=== PATIENT | female | born 1935 | race Caucasian/White ===

== ENCOUNTER → 2018-01-03 12:16 | Outpatient (CLI) | payer MEDICARE, SELFPAY ==
[2018-01-03 12:57] LABS: Alanine Aminotransferase 20 IU/L (9-52); Albumin 4.6 g/dL (3.5-5.0); Albumin Globulin Ratio 1.5 (1.0-2.8); Alkaline Phosphatase 95 U/L (38-126); Aspartate Aminotransferase 31 IU/L (14-36); BUN Creatinine Ratio 22.5 (6-22); Bilirubin Total 1.4 mg/dL (0.2-1.3); Blood Urea Nitrogen 18 mg/dL (7-17); Carbon Dioxide 31 mmol/L (22-32); Chloride 100 mmol/L (98-107); Estimated Glomerular Filt Rate > 60.0 mL/min (>60); Glucose 102 mg/dL (80-110); HEMOLYSIS 24 (0-50); Potassium 4.3 mmol/L (3.4-5.1); Sodium 140 mmol/L (137-145); Total Protein 7.6 g/dL (6.3-8.2)
[2018-01-03 13:39] LABS: Thyroid Stimulating Hormone 2.54 uIU/mL (0.47-4.68)
[2018-01-03 13:43] LABS: Hemoglobin 16.8 g/dL (12.0-16.0); Red Blood Cell Count 4.89 X10^6/uL (4.0-5.2); White Blood Cell Count 9.5 X10^3/uL (4.5-11.0)
[2018-01-03 13:44] LABS: Hematocrit 49.9 % (36-46); Mean Corpuscular HGB Conc 33.7 % (30-36); Mean Corpuscular Hemoglobin 34.4 PG (26-34); Red Cell Distribution Width 13.6 % (11.6-14.8)
[2018-01-03 13:45] LABS: Add Manual Diff / Slide Review YES
[2018-01-03 13:48] LABS: Anisocytosis 1+; Neutrophils Absolute Manual 5510 /uL (3000-5900); Total Cells Counted 100
== END ==
PROVIDERS: Family Provider Family Medicine; PCP Family Medicine; Visit Provider Family Medicine
DX: I10 Essential (primary) hypertension (principal)
CPT/HCPCS: 36415; 80053; 84443; 85025

== ENCOUNTER 2020-02-13 01:19 | Emergency (ER) | payer SELFPAY | END 2020-02-13 01:53 | disposition home or self-care (01) | LOC: ED 01:52 ==

== ENCOUNTER 2020-02-13 01:19 | Observation (INO) | payer MEDICARE, SELFPAY ==
[2020-02-13] VITALS (29 sets, daily range): BP systolic 137–194; BP diastolic 70–91; PULSE 61–93; RESP 16–38; TEMP 36.1–36.7; O2SAT 94–96; BMI 20.1; BMI 18.5
--- NOTE | 2020-02-13 01:35 | DI.CT.S_ITS ---
PROCEDURE: CT FACIAL BONES WO CON INDICATIONS: Fall/injury TECHNIQUE: Noncontrast 2.5 mm thick axial images acquired from the mandible through the frontal sinuses, with coronal and sagittal reformatting. For radiation dose reduction, the following was used: automated exposure control, adjustment of mA and/or kV according to patient size. COMPARISON: None. FINDINGS: Image quality: Excellent. Bones and teeth: Orbital rock are intact. Sinus rock show no fracture or deformity. Nasal bones and septum are intact. Visualized portions of the mandible demonstrate no fractures or subluxation. Zygomatic arches are intact. Pterygoid plates are intact. Visualized portions of the skull base and auditory canals are intact. Extensive dental periapical lucencies noted. Sinuses: Mucosal thickening noted in the maxillary sinuses bilaterally. Mastoid air cells are aerated. Soft tissues: Left periorbital facial soft tissue swelling. Small air locule noted in the anterior right paramedian floor the mouth. No enlarged lymph nodes. No soft tissue lacerations or debris. Vascular: Visualized vascular structures appear normal in the absence of contrast. Bony vascular foramina and canals are intact. IMPRESSION: 1. No fracture. 2. Extensive periodontal disease. 3. Small air locule in the anterior right paramedian floor of the mouth of uncertain etiology and clinical significance. Recommend correlation with clinical findings. Dictated by: Imelda Hernandez MD, PhD on 02/13/2020 at 7:47 Approved by: Imelda Hernandez MD, PhD on 02/13/2020 at 7:51
--- NOTE | 2020-02-13 01:35 | DI.CT.S_ITS ---
PROCEDURE: CT HEAD/BRAIN WO CON INDICATIONS: Fall/injury TECHNIQUE: Noncontrast 4.5 mm thick angled axial sections acquired from the foramen magnum to the vertex, with coronal and sagittal reformats. For radiation dose reduction, the following was used: automated exposure control, adjustment of mA and/or kV according to patient size. COMPARISON: None. FINDINGS: Image quality: Excellent. CSF spaces: Basal cisterns are patent. No extra-axial fluid collections. Ventricles are normal in size and shape. Brain: No midline shift. No intracranial masses or hemorrhage. Soares-white matter interface is normal. Skull and face: Calvarium and visualized facial bones are intact, without suspicious lesions. Left facial periorbital soft tissue swelling. Sinuses: Mucosal thickening noted in the maxillary sinuses bilaterally. The mastoids are clear. IMPRESSION: No acute intracranial disease process. Dictated by: Imelda Hernandez MD, PhD on 02/13/2020 at 7:31 Approved by: Imelda Hernandez MD, PhD on 02/13/2020 at 7:32
--- NOTE | 2020-02-13 01:35 | DI.CT.S_ITS ---
PROCEDURE: CT CERVICAL SPINE WO CON INDICATIONS: Fall/injury TECHNIQUE: Noncontrast 3 mm thick sections acquired from the skull base to the T4 level. Sagittal and coronal reformats were then constructed. For radiation dose reduction, the following was used: automated exposure control, adjustment of mA and/or kV according to patient size. COMPARISON: None. FINDINGS: Image quality: Excellent. Bones: No fractures or dislocations. Visualized superior ribs are intact. Spine degenerative disc disease and facet arthropathy. Soft tissues: Prevertebral soft tissues are normal in thickness. No paravertebral hematomas. No apical pneumothoraces. Centrilobular emphysematous changes noted in the lungs bilaterally. 4 millimeter calcified granuloma in the posterior left lung apex. IMPRESSION: No fracture. No acute osseous lesion. If symptoms and/or clinical suspicion for pathology persists, evaluation with MRI may be helpful for further assessment. Dictated by: Imelda Hernandez MD, PhD on 02/13/2020 at 7:52 Approved by: Imelda Hernandez MD, PhD on 02/13/2020 at 7:58
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
[2020-02-13] MEDS: TET,DIPH,PERTUSS(ACELL),VAC/PF 0.5 ML SYRINGE IM (01:43)
[2020-02-13 02:04] LABS: Ethanol (ETOH) 162 mg/dL
[2020-02-13 02:31] LABS: Alanine Aminotransferase 15 IU/L (<35); Albumin 3.9 g/dL (3.5-5.0); Albumin Globulin Ratio 1.3 (1.0-2.8); Alkaline Phosphatase 96 U/L (38-126); Aspartate Aminotransferase 30 IU/L (14-36); BUN Creatinine Ratio 27.3 (6-22); Bilirubin Total 0.6 mg/dL (0.2-1.3); Blood Urea Nitrogen 24 mg/dL (7-17); Calcium 8.9 mg/dL (8.4-10.2); Carbon Dioxide 28 mmol/L (22-32); Chloride 101 mmol/L (98-107); Creatine Kinase 90 U/L (30-135); Estimated Glomerular Filt Rate > 60.0 mL/min (>60); Globulin 2.9 g/dL (1.7-4.1); Glucose 91 mg/dL (80-110); HEMOLYSIS 22 (0-50); Potassium 4.2 mmol/L (3.4-5.1); Sodium 137 mmol/L (137-145); Total Protein 6.8 g/dL (6.3-8.2)
[2020-02-13 02:42] LABS: Add Manual Diff / Slide Review NO; Basophils Absolute Auto 100 /uL (0-100); Basophils Percent Auto 0.8 % (0-2); Eosinophils Absolute Auto 400 /uL (0-450); Eosinophils Percent Auto 4.6 % (2-4); Hematocrit 47.1 % (36-46); Hemoglobin 15.8 g/dL (12.0-16.0); Lymphocytes Absolute Auto 2600 /uL (1100-4500); Lymphocytes Percent Auto 30.5 % (25-40); Mean Corpuscular HGB Conc 33.5 % (30-36); Mean Corpuscular Volume 104.7 fL (80-100); Monocytes Absolute Auto 800 /uL (0-900); Neutrophils Absolute Auto 4700 /uL (1500-7000); Neutrophils Percent Auto 55.1 % (50-75); Red Cell Distribution Width 13.6 % (11.6-14.8)
[2020-02-13 02:43] LABS: Troponin I < 0.012 ng/mL (0.01-0.034)
--- NOTE | 2020-02-13 03:00 | DI.CT.S_ITS ---
PROCEDURE: CT ANGIO HEAD AND NECK INDICATIONS: ataxia TECHNIQUE: Pre-contrast 4.5 mm thick sections acquired from the foramen magnum to the vertex. After the administration of intravenous contrast, 1 mm thick sections acquired from the aortic arch through the Taylor of Campbell. Post-contrast 4.5 mm thick sections then re-acquired from the foramen magnum to the vertex. 3-dimensional mhypzib-tzxycvumr-glamgebpjc (MIP) and/or volume rendering reformats were acquired of the central intracranial vasculature and neck separately. COMPARISON: None. FINDINGS: Image quality: Excellent. BRAIN: CSF spaces: Ventricles are normal in size and shape. Basal cisterns are patent. No extra-axial fluid collections. Brain: No midline shift. No intracranial bleeds or masses. Soares-white matter interface appears intact. Skull and face: Calvarium and facial bones appear intact, without suspicious lesions. Orbits appear normal. Left periorbital facial soft tissue swelling. Sinuses: Mucosal thickening noted in the maxillary sinuses. Small mucous retention cyst versus polyp noted in the left sphenoid sinus. mastoids are clear. HEAD CT ANGIOGRAPHY: Anterior circulation: Intracranial internal carotid arteries are normal in flow. Atherosclerotic calcifications noted in the cavernous and clinoid segments of the internal carotid arteries bilaterally which causes mild narrowing of the vessels. The flow within the paired anterior cerebral arteries is normal and symmetric. The flow within the middle cerebral arteries is normal and symmetric. The anterior communicating artery is seen. No aneurysms are seen. Posterior circulation: Visualized portions of the vertebral arteries demonstrate normal caliber, and join to form a normal appearing basilar artery. Flow within the posterior cerebral arteries is normal and symmetric. The left posterior cerebral artery has a origin. No aneurysms are seen. Dural sinuses demonstrate normal postcontrast enhancement. NECK CT ANGIOGRAPHY: Carotid system: The great vessels demonstrate a conventional anatomy as they arise from the aortic arch. The origins of the common carotid arteries appear patent. The common carotid arteries demonstrate normal caliber and courses. Minimal atherosclerotic plaque noted in the origins of the internal carotid arteries bilaterally which causes less than 50% stenosis. Posterior circulation: The origins of the vertebral arteries both appear widely patent. Patient is right vertebral artery dominant. The more superior extracranial portions of both vertebral arteries also demonstrate normal courses and calibers. They join to form a normal appearing basilar artery. Soft tissues: Visualized neck soft tissues demonstrate no suspicious abnormalities. 3 millimeter nodule noted in the posterior lateral right upper lobe (series 4, image 162). Bilateral lung apices images disease. Small subcentimeter nodules noted in the thyroid gland. Bones: No suspicious bony lesions. Spine degenerative disc disease and facet arthropathy. Visualized cervical spine appears normally aligned. IMPRESSION: 1. No acute intracranial disease process. 2. No large vessel occlusion, hemodynamically significant vascular stenosis, vascular dissection or aneurysm. 3. 3 millimeter right upper lobe nodule. 4. Small subcentimeter thyroid nodules. Any quantitative measurements of stenosis were performed using NASCET criteria. Dictated by: Imelda Hernandez MD, PhD on 02/13/2020 at 8:01 Approved by: Imelda Hernandez MD, PhD on 02/13/2020 at 8:09
[2020-02-13] MEDS: SODIUM CHLORIDE 0.9% 500 ML 1000 ML IV (03:10)
--- NOTE | 2020-02-13 03:14 | PC.NURSE ---
Orthostatics done at bedside with Dr. Felton present. BP and HR unchanged during orthostatics. Pt mobilizing wobbly; she felt a little dizzy upon sitting up. After a bit, she still feels unsteady walking and is swaying around requiring an assist. Assisted back to bed. Will obtain CT scan with contrast. Still AxOx3, clear speech
[2020-02-13 03:22] LABS: Platelet Count 166 X10^3/uL (150-400); White Blood Cell Count 6.3 X10^3/uL (4.5-11.0)
[2020-02-13] MEDS: ASPIRIN 81 MG CHEW TAB 324 MG PO (04:55)
[2020-02-13 05:19] LABS: COVID19 -Nasal RAPID Negative (Negative)
--- NOTE | 2020-02-13 06:48 | PC.ADMIT ---
[id number] [facility] Admission Note: The patient,Himanshu Herr,84 y/o, was given written information regarding hospital policies, unit procedures and contact persons. Patient's smoking status: Current every day smoker. Vital Signs - 8 hr 02/13/20 01:30 02/13/20 05:19 02/13/20 06:02 Temperature 97.9 F 97.4 F L Pulse Rate 75 74 77 Respiratory Rate 17 18 Blood Pressure 166/87 H 172/82 H 181/80 H Pulse Oximetry 96 94 96 02/13/20 06:03 02/13/20 06:08 Temperature Pulse Rate 92 H Respiratory Rate 16 Blood Pressure 144/73 H 144/70 H Pulse Oximetry 95 Patient arrived to room 227 via stretcher in NAD. VSS, afebrile. Able to transfer from stretcher with assist to bed. C/O dizziness upon ambulation intermittently. Reports she does not take any medication. Oriented to room, plan of care and call light. Bed alarm verified active.
--- NOTE | 2020-02-13 07:34 | DI.MRI.S_ITS ---
PROCEDURE: MR STROKE Pre- and post-contrast brain MRI, non-contrast brain MR angiogram, pre- and postcontrast neck MR angiogram INDICATIONS: fall ataxia r/o possible cva TECHNIQUE: Brain: Noncontrast axial T1 spin echo, axial T2 fast spin echo, sagittal and axial FLAIR, coronal T2 fast spin echo, axial gradient echo, axial diffusion and ADC through the brain. After the administration of contrast, axial 3D VIBE of the cranial vasculature and brain. Brain MRA: Non-contrast 3-D time of flight MR angiogram, with multiple vjtwxkk-uvfosisid-bqgoxachpb (MIP) reformats performed. Neck MRA: Axial and sagittal TruFISP through the neck. Coronal dynamic MR angiogram during administration of contrast in the arterial and venous phases, with 3-dimenstional vejxazo-dyliwoggx-xfnlnrigxs (MIP) reformats constructed from subtraction images. COMPARISON: [facility], CT, CT ANGIO HEAD AND NECK, 02/13/2020, 3:12. [facility], CT, CT HEAD/BRAIN WO CON, 02/13/2020, 1:40. FINDINGS: Image quality: Excellent. BRAIN: CSF spaces: Ventricles are normal in size and shape. Basal cisterns are patent. No extra-axial fluid collections. Brain: No intracranial bleeds or mass effects. There is mild, diffuse cerebral volume loss. There are mild periventricular and subcortical white matter chronic microvascular ischemic changes. Soares-white matter interface is normal. Diffusion weighted images show no acute ischemic insults. Brainstem appears normal. Normal intravascular flow voids are present. There is normal postcontrast enhancement of the dural sinuses. No abnormal intracranial enhancement. Skull and face: Calvarial marrow signal is normal. Orbits appear normal. Sinuses: Mild mucosal thickening noted in the maxillary sinuses bilaterally. The mastoids are clear. BRAIN MR ANGIOGRAM: Anterior circulation: Intracranial internal carotid arteries are normal in enhancement. Mild atherosclerotic irregularity noted in the cavernous and clinoid segments of the internal carotid arteries bilaterally which causes mild narrowing of the vessels. The flow within the paired anterior cerebral arteries is normal and symmetric. The flow within the middle cerebral arteries is normal and symmetric. The anterior communicating artery is seen. No stenoses, occlusions, or aneurysms. Posterior circulation: The visualized portions of the vertebral arteries demonstrate normal caliber, and join to form a normal appearing basilar artery. The flow within the posterior cerebral arteries is normal and symmetric. Left posterior cerebral artery has a origin. No stenoses, occlusions, or aneurysms. NECK MR ANGIOGRAM: Carotids: Great vessels demonstrate a conventional anatomy as they arise from the aortic arch. The origins of the common carotid arteries appear patent. The calibers and courses of both common carotid arteries are normal. The bifurcation regions appear normal bilaterally. The internal carotid arteries demonstrate normal course and caliber. Posterior circulation: The origins of the vertebral arteries appear patent. More superior portions of both vertebral arteries demonstrate normal course and caliber, and join to form a normal appearing basilar artery. Miscellaneous: Subclavian arteries appear patent. Pre-contrast images through the neck show no soft tissue abnormalities. IMPRESSION: BRAIN MRI: 1. No acute intracranial disease process. 2. No areas of acute or chronic infarction. 3. Mild, diffuse cerebral volume loss. 4. Mild periventricular and subcortical white matter chronic microvascular ischemic change. BRAIN MR ANGIOGRAM: Negative MR angiogram of the head. NECK MR ANGIOGRAM: Negative MR angiogram of the neck. Dictated by: Imelda Hernandez MD, PhD on 02/13/2020 at 11:15 Approved by: Imelda Hernandez MD, PhD on 02/13/2020 at 11:22
--- NOTE | 2020-02-13 07:42 | P.HP_ITS ---
History of Present Illness History of Present Illness Date Patient Seen: 02/13/20 Time Patient Seen: 07:01 Chief complaint: glf Narrative: 84-year-old female patient of Dr. Campbell was in her usual state of health last night. She when out to go walk her dog. She got home to the diarrhea she fell. She says she does not really remember falling but she kind does. She does not remember hitting her head either. This was in her driveway. She says she could not get up is quite frustrating for her she is very spry she enjoys walking. She says she has never had this problem before. Apparently she was in the driveway for about 20 minutes or so until her came out and found her. She was having hard time getting up and he was concerned and he called 911. Patient states she had her normal evening when out for her normal walk. She drink or 2 glasses of scotch which she always does. She says that is never really been a problem for her. She says during the day she did not have any headaches or dizziness chest pain palpitations or shortness of breath. She has not had problems with fall and does not appear to feel like she has an alcohol problem. Up after the EMS was called. Patient was having a difficult time getting up. They did not see any lateralization symptoms of difficulty with hand finger leg weakness difficulty with speech. She was then sent to the emergency room for evaluation where she had a CT CT angiogram lab work. CT scan was unrevealing of head and neck. CTA was normal an AH stroke scale was 1. Had consultation with neurology who recommended further evaluation and observation to rule out underlying potential cardiac or cerebral cause of her inability to ambulate fall so she was admitted to the hospital. She was tried ambulated number times in the emergency room. She is weeks she had an ataxic gait. She was off balance and could not ambulate on her own without significant assistance. On review of her laboratory tests are fairly unremarkable although she does have a blood alcohol level 162. This morning. She is a good historian clear. She says that does she is feeling okay she just does not remember how she fell and she is frustrated on the reason why she could not get up and walk on her own which is unusual for her. Patient History Medical History Deep vein thrombosis (Chronic) Osteopenia (Chronic) Thrombocytopenia (Chronic) Surgical History History of hip replacement (11/24/02) S/P total abdominal hysterectomy and bilateral salpingo-oophorectomy (~1976) Status post breast biopsy Family & Social History Social History: household members spouse Prior Living Arrangements House Safety & Behavioral: Feels Safe in Current Yes Environment Been Physically Hurt or No Threatened By a Person Suicidal Ideation Description None Tobacco & Substance use: Smoking Status Current every day smoker alcohol intake current alcohol intake frequency 0-2 drinks per day Substance Use Type does not use Meds Home Medications and Allergies Home Medications Medication Instructions Recorded Confirmed Type No Known Home Medications 02/13/20 02/13/20 History Allergies Allergy/AdvReac Type Severity Reaction Status Date / Time erythromycin base Allergy Verified 01/18/18 11:12 Exam Vital Signs (past 8 hours): - 02/13/20 01:30 02/13/20 05:19 02/13/20 06:02 Temperature 97.9 F 97.4 F L Pulse Rate 75 74 77 Respiratory Rate 17 18 Blood Pressure 166/87 H 172/82 H 181/80 H Pulse Oximetry 96 94 96 02/13/20 06:03 02/13/20 06:08 Temperature Pulse Rate 92 H Respiratory Rate 16 Blood Pressure 144/73 H 144/70 H Pulse Oximetry 95 Oxygen Delivery Method Room Air Narrative Exam Narrative: Gen.: She is alert good historian. HEENT: Patient has a left-sided facial bruising underneath her eye. With a small abrasion on her nose left temporal area on her forehead. Her pupils equal round and reactive her oral mucosa is moist in her neck is supple Cardio: S1-S2 regular rate and rhythm no murmurs appreciated. Respiratory: Lungs are clear to auscultation no wheezes or crackles normal respiratory effort. Abdomen: Soft nontender no rebound or guarding no liver spleen enlargement no appreciable hernias Extremities: Full range of motion no weakness good strength Neurologic: Cranial nerves appear to be intact. Reflexes are normal Objective Labs Result Diagrams: 02/13/20 01:45 02/13/20 01:45 Labs: Laboratory Results - last 24 hr 02/13/20 02/13/20 02/13/20 01:45 01:45 01:45 WBC 6.3 RBC 4.50 Hgb 15.8 Hct 47.1 H MCV 104.7 H MCH 35.0 H MCHC 33.5 RDW 13.6 Plt Count 166 Neut % (Auto) 55.1 Lymph % (Auto) 30.5 Buchanan % (Auto) 9.0 Eos % (Auto) 4.6 H Baso % (Auto) 0.8 Neut # (Auto) 4700 Lymph # (Auto) 2600 Buchanan # (Auto) 800 Eos # (Auto) 400 Baso # (Auto) 100 Sodium 137 Potassium 4.2 Chloride 101 Carbon Dioxide 28 BUN 24 H Creatinine 0.88 Estimated GFR > 60.0 BUN/Creatinine Ratio 27.3 H Glucose 91 Calcium 8.9 Total Bilirubin 0.6 AST 30 ALT 15 Alkaline Phosphatase 96 Total Creatine Kinase 90 CK-MB (CK-2) TNP CK-MB (CK-2) Rel Index TNP Troponin I < 0.012 Total Protein 6.8 Albumin 3.9 Globulin 2.9 Albumin/Globulin Ratio 1.3 Ethyl Alcohol 162 H COVID-19 PCR 02/13/20 05:00 WBC RBC Hgb Hct MCV MCH MCHC RDW Plt Count Neut % (Auto) Lymph % (Auto) Buchanan % (Auto) Eos % (Auto) Baso % (Auto) Neut # (Auto) Lymph # (Auto) Buchanan # (Auto) Eos # (Auto) Baso # (Auto) Sodium Potassium Chloride Carbon Dioxide BUN Creatinine Estimated GFR BUN/Creatinine Ratio Glucose Calcium Total Bilirubin AST ALT Alkaline Phosphatase Total Creatine Kinase CK-MB (CK-2) CK-MB (CK-2) Rel Index Troponin I Total Protein Albumin Globulin Albumin/Globulin Ratio Ethyl Alcohol COVID-19 PCR Negative Assessment & Plan Assessment & Plan narrative: Fall with inability to ambulate. Patient was tried ambulated number times in the ER with inability to ambulate. Neurology was consulted. Recommended further evaluation and workup to rule out underlying cerebrovascular accident versus TIA. Patient will have an MR stroke protocol this morning with an echocardiogram she will be placed on telemetry monitoring. She will have physical therapy. Her blood pressure is a little bit high she will be continued on aspirin and DVT prophylaxis. Will proceed with echocardiogram physical therapy. Differential possibilities include TIA verses acute labyrinthitis versus alcohol intoxication. Will monitor here in the hospital for other signs and symptoms and see if we can not get her up and allow her to walk and ambulate with assistance. Alcohol intoxication. With chronic alcohol use. She says she drinks every night. And appears her alcohol level would be normal baseline for her in the evening. Although this could be contributing to her inability to ambulate and her fall. Essential hypertension blood pressures initially quite high. Has not come down nicely. Will continue to monitor and start antihypertensive medication if needed. Prophylaxis she will be placed on DVT prophylaxis. Disposition plan she will be admitted for observation for further evaluation she will work with physical therapy have an MRI and echocardiogram. Anticipate patient to be discharged tomorrow if no significant findings. Quality VTE Deep Vein Thrombosis/Pulmonary Embolism Present on Admission: No
--- NOTE | 2020-02-13 08:56 | PC.NURSE ---
Addendum entered by Melva Han R.N. 02/13/20 12:44: Up with PT, ambulating in [place], Per Scott, 1PA FWW. Gait steady. Denies pain. Addendum entered by Melva Han R.N. 02/13/20 11:32: 1115-Returned from MRI. Pt assisted to BR. HTN noted, will recheck. Pt does not take any meds at home. Addendum entered by Melva Han R.N. 02/13/20 10:20: 1020- Pt off unit for MRI, jewelry removed and placed in cup at bedside. Original Note: Am shift Pt is ALGAACIQ, denies pain, except 1/10 to L periorbital bruising. States she has been weak to BLE since fall, but was able to get to BSC with assist of 1 and FWW. RA Spo2 97% Updated on POC to include MRI today @ 1030. MRI questions completed with Buck zamora . Update to Daughter.
[2020-02-13] MEDS: ENOXAPARIN 30 MG/0.3 ML SYRINGE SUBCUT (11:41)
--- NOTE | 2020-02-13 13:53 | PC.NURSE ---
Spoke with Dr. San who is assembler convertible top for Dr. Almonte. Reported VS and MRI results. Reviewed case. Orders received to monitor routine VS and notify assembler convertible top provider for SBP greater than 180. Reported to primary RN.
--- NOTE | 2020-02-13 14:48 | PT.IIE ---
Surgical History (Last Reviewed 02/13/20 @ 01:38 by Harry Felton MD) History of hip replacement (11/24/02) S/P total abdominal hysterectomy and bilateral salpingo-oophorectomy (~1976) Status post breast biopsy Medical History (Last Reviewed 02/13/20 @ 01:38 by Harry Felton MD) Deep vein thrombosis (Chronic) Osteopenia (Chronic) Thrombocytopenia (Chronic) Physical Therapy Inpatient Evaluation/Re-Eval M1 PT/OT-IP Prior Functional Status Start: 02/13/20 08:56 Freq: NEEDED Status: Active Protocol: Document 02/13/20 13:51 HH (Rec: 02/13/20 14:00 [id number]) Medical Review Prior Functional Status Medical History Reviewed Yes Diet/Fluid Consistency Regular Communication able to make needs known. KALSKAG Mobility and Gait Pt does not need AD for home mobility but SPC for community mobility. She stated she has balance issue. She likes to walk up to 1/2 mile a day and enjoy walking her dog daily. She has been progressively getting weak recently from a week ago who fell twice. Activities of Daily Living and IADL's independent for ADLs and IADLs with/without SPC. Social History Household Members spouse Living Arrangements House Number of Floors (Floors) One Floor Number of Stairs To Enter/Railing? 3 short RAFFY without railings has a ramp from the sideway to enter the house as well Home Environment Standard Height Toilet,Walk in Shower,Ramp Home Equipment Straight Cane,Hand Held Shower ,Grab Bars In Shower Employment Status Retired Additional Social History Comment Pt lives with her disabled Don in [place]. She stated has 24/7 assistance from multiple CGs. Has 2 children who are 50s but live in [place]. They have not been seeing each other d/t border restriction for COVID. M2 PT-IP Current Condition Start: 02/13/20 08:56 Freq: NEEDED Status: Active Protocol: Document 02/13/20 13:51 HH (Rec: 02/13/20 14:00 [id number]) Physical Therapy Current Condition Current Condition Evaluation Date 02/13/20 Treatment Diagnosis GLF, possible TIA, alcohol intoxication, labyrinthitis, difficulty in wking Onset Date 02/12/20 Weight Bearing Status Weight Bearing Status Full Weight Bearing M3 PT-IP Subjective Start: 02/13/20 08:56 Freq: NEEDED Status: Active Protocol: Document 02/13/20 13:51 (Rec: 02/13/20 14:00 [id number]) Subjective Physical Therapy Visit Type Type Initial Evaluation Visit Start Time 12:10 Visit Stop Time 12:43 Total Visit Minutes 33 Notes BP has been staying at 190s/ 90s per nursing staff stated. Number of SCARFER OPERATOR Visits 0 Physical Therapy Visit Comments Patient Comments Im feeling okay. Patient Goals To regain her strength and mobility so she can return home. Therapy Pain Assessment Pain Present Pain Present Denied Pain M4 PT-IP Mobility and Gait Start: 02/13/20 08:56 Freq: NEEDED Status: Active Protocol: Document 02/13/20 13:51 (Rec: 02/13/20 14:00 [id number]) PT-Bed Mobility Assessment Supine to Sit Supine to Sit Standby Assistance Scooting Scooting to Edge of Bed Standby Assistance PT-Transfer Assessment Sit to and From Stand Sit to and from Stand Contact Guard Assistance Equipment Transfer Assistive Device Bed Rail,Front Wheeled Walker Orthotic/Prosthetic Devices or Brace: No Transfers Transfer Destination Bed,Chair Transfer Technique Stand Step Pivot Transfer Ability Level of Assist Contact Guard Assistance,Use of Upper Extremities Comments Mobility Comments Pt was sleeping in bed upon PT arrival. She was able to answer appropriately but very KALSKAG. She woke up and agreed to mobilize with PT .BP at 168/ 90 in supine and denies any discomfort. She then got up from supine to long sit position and pivot herself to R EOB safely. She stood up after without UE push off from bed. FWW provided for her and she could greige goods examiner place independently. Pt did c/o slight lightheadiness but resolved shortly. Pt was able to proceed to amb with PT. She completed amb for 1 lap of [place]. She amb with minimally use of FWW and appeared to be quite steady with CGA/ SBA. Denies any discomfort or SOB. She then went back to her room and stand step pivot transferred herself to bedside chair without cues. She sat in chair comfortably and no symptoms of dizziness/ lightheadiness. BP at 170/90. Gait Assessment Gait Gait Assistance Required: Standby Assistance,Contact Guard Assist Distance (Feet) 180 Able to Maintain Weight Bearing Status Yes During Gait Assistive Devices Assistive Device Gait Belt,Front Wheeled Walker Orthotic/Prosthetic Devices or Brace: No Gait Deviations General Gait Pattern Decreased Stride Length, Decreased Feet Clearance Factors Limiting Gait Function Factors Limiting Gait Function Decreased Activity Tolerance, Decreased Strength,Poor Balance Comments Gait Comments see mobility comments Stair Climbing Assessment Comments Stair Climbing Comments did not assess d/t tolerance. PT-Balance Assessment Sitting Balance and Reactions Static Sitting Balance Ability Normal Dynamic Sitting Balance Ability Normal Standing Balance and Reactions Static Standing Balance Ability Good Dynamic Standing Balance Ability Good Device Used FWW M5 PT-IP Objective Assessments Start: 02/13/20 08:56 Freq: NEEDED Status: Active Protocol: Document 02/13/20 14:38 (Rec: 02/13/20 14:48 [id number] Orientation Orientation/Cognition Level of Alertness Alert Orientation Name,Age,Birthday,Month,Date, Year,Day of Week,Place, Situation Language Function Ability No Deficits Noted,Hard of Hearing Safety Awareness Understands Safety Issues Memory Description Short Term Impaired Comments Pt reports her short term memory has not been too good since she started getting weaker. Gross Range of Motion Upper Extremity ROM Assessment Within Functional Limits Lower Extremity ROM Assessment Within Functional Limits Strength Upper Extremity Strength Assessment Bilaterally Impaired Shoulder 4-/5 Elbow 4-/5 Lower Extremity Strength Assessment Bilaterally Impaired Hip 4-/5 Knee 4-/5 Coordination Assessment Gross Coordination Gross Coordination WNL Sensation Assessment Sensation Gross Sensation WNL Muscle Tone Muscle Tone WNL Yes M6 PT-IP Treatment Start: 02/13/20 08:56 Freq: NEEDED Status: Active Protocol: Document 02/13/20 14:38 (Rec: 02/13/20 14:48 [id number]) Physical Therapy Treatment Education Education Provided Safety M7 PT-IP Assessment and Plan Start: 02/13/20 08:56 Freq: NEEDED Status: Active Protocol: Document 02/13/20 14:38 (Rec: 02/13/20 14:48 [id number]) PT Summary Assessment and Plan Potential Rehabilitation Potential Good Status of Condition at Evaluation Evolving Summary Impairments ROM,Strength,Balance,Bed Mobility,Transfers,Gait, Activity Tolerance Assessment Summary This is a low complexity evaluation for this 64yo female admitted to for possible TIA, alcohol intoxication and acute labyrinthitis. Pt stated she was independent with/ without SPC for mobility and walked upto 0.5 mile everyday. Upon assessment, pt appeared to be a good historian and able to amb steadily with FWW for up to 200 ft safely. She was SBA/ CGA in general but her BP cont to be high around 160s/90s pre and post mobility but I believe that she will cont to progress during hospitalization. Expect pt to d/c home if she is medically stable. If not, home health might be beneficial to her to improve her mobility and strength since pt has a disabled that needs 24 /7 care from CGs. Goals Bed Mobility Goal Standby Assistance Transfer Goal Standby Assistance,Cane,Front Wheeled Walker Gait Goal Standby Assistance,Cane,Front Wheel Walker Gait Distance 400 Days to Meet Goals 3 Frequency of Treatment Frequency Of Treatment Once a Day Treatment Plan Physical Therapy Treatment Plan Bed Mobility Training,Transfer Training,Gait Training, Therapeutic Exercise,Balance Retraining,Discharge Planning, Neuromuscular Re-ed Other Recommendations and Next Treatment mobility as ismael Focus check vitals trial for SPC if possible Recommendations To Nursing Amount of Assist Needed 1 Person Assist Discharge Recommendations PT Discharge Recommendations Home with Assistance,Home Health Other Discharge Recommendations Expect pt to d/c home if she is medically stable. If not, home health might be beneficial to her to improve her mobility and strength since pt has a disabled that needs 24/7 care from CGs. Transportation Needs at Discharge Private Vehicle
--- NOTE | 2020-02-13 22:05 | PC.NURSE ---
Shift note: Pt Alert and oriented to self and surroundings. Denies pain or discomfort. VSS, NSVS stable. Asked frequently about test results, reassured that MD would go over all her results in the AM.
--- NOTE | 2020-02-14 06:05 | PC.NURSE ---
director of business continuity note: Patient with marked forgetfulness throughout the night. Multiple times patient has gotten up out of bed, without calling for assistance. Both RN and ACCOUNT SERVICES SPECIALIST educated patient on importance of calling for assistance prior to getting up. Upon initial assessment, patient also disoriented to year and situation. Patient with restful night sleep, otherwise. VSS, patient ambulated to restroom with SBA only. Patient eating/drinking well. Patient repositioning in bed independently throughout the shift. Currently patient is sleeping, no distress noted.
[2020-02-14 08:00] VITALS: BP 164/77; PULSE 65; RESP 20; TEMP 36.6; O2SAT 94
--- NOTE | 2020-02-14 10:10 | P.DS_ITS ---
History of Present Illness History of Present Illness Date Patient Seen: 02/14/20 Time Patient Seen: 10:10 Date of Onset of Symptoms: 02/14/20 Chief complaint: glf Narrative: See history and physical dictated by Dr. Almonte 02/13/2020 Discharge Providers Provider Date of admission: 02/13/20 05:20 Discharge Date: 02/14/20 Primary care physician: Sukhjinder Campbell MD Consults: 02/13/20 07:33 Consult to Physical Therapy Evaluate & Treat Comment: Physician Instructions: Evaluate and Treat Discharge provider: Patricio Flores MD Summary Hospital Course Discharge Diagnosis: Fall Inability to ambulate Contusion left face Alcohol intoxication Essential hypertension Hospital Course: Fall. Patient was admitted. CT scan of neck and head showed no abnormality. Patient was somewhat unclear of what happened. Could remember actually following period remembered waking up on the ground. MRI was negative showed no evidence of stroke. Crowley to be combination of alcohol and possible concussion. Patient neurologically stable throughout the course of her admission. Tele showed no evidence of arrhythmia. Physical therapy showed normal ability to ambulate period was slightly weak but home health was discus sed with patient and she has 24 hour caregiver in the house and does not want any further help. Patient requesting go home showed no other evidence of abnormality on will be discharged to home. Inability to ambulate. Crowley to be secondary to above. Probably contusion and concussion. Seems to be much better today. Still feels slightly was a but totally normal exam neurologic normal MRI. Probably was combination of alcohol intoxication and concussion. Seems to pretty much have resolved. Patient will follow-up with her usual provider. Contusion left face. No evidence of orbital or facial fractures. Small abrasion. Can use Neosporin or bacitracin or do nothing. No other changes. Fo llow-up with Dr. Campbell as scheduled. Alcohol intoxication. Patient had a blood alcohol level 162. She admits to drinking 2 scotches a day which she has done for ever. She does not feel it has ever been a problem we discussed that it might have been part of the issue for her fall. She probably will make any changes. We discussed reasoning she understands. Essential hypertension. Not on medications. Borderline elevated consistently throughout admission. Probably will need treatment but not probable cause of fall and can wait until primary care doctor sees her and treats. Or at least h ad that discussion. Status at Discharge Cognitive/behavioral status at discharge: oriented Functional status at discharge: independent ambulation Overall status at discharge: patient is progressing back to baseline Exam Vital Signs (past 8 hours): - 02/14/20 08:00 Temperature 97.8 F Pulse Rate 65 Respiratory Rate 20 Blood Pressure 164/77 H Pulse Oximetry 94 Oxygen Delivery Method Room Air Oxygen Flow Rate 0 Narrative Exam Narrative: Alert elderly female lying in bed no acute distress. HEENT exam shows slight ecchymoses and small abrasion over the left eyebrow. She has some ecchymosis down around the lower orbit. No real swelling. Very slight tenderness to palpation. Eye itself appears normal. Normal movement. Neck supple without adenopathy nontender. Lungs are clear. Heart regular rate and rhythm. Abdomen is soft positive bowel sounds nontender. Extremities normal movement nontender. Neurologic exam shows cranial nerves 2-12 intact. Motor is 5/5. Reflexes 2+ and symmetric. Gait appears normal if she walks around with assistance. Psychologically interactive and appropriate Objective Labs Result Diagrams: 02/13/20 01:45 02/13/20 01:45 Labs: Laboratory Results - last 24 hr 02/13/20 05:50 Nasal Screen MRSA (PCR) Negative for mrsa Discharge Assessment & Plan Assessment and Plan Assessment: Discharge to home. Follow-up with Dr. Campbell 1 week Discharge Plan Discharge Plan Patient Disposition: Home Discharge orders & Medications Prescriptions: No Action No Known Home Medications RF: 0 Follow up/Referrals: Sukhjinder Campbell MD [Primary Care Provider] - 1 Week (Patient to call on Sunday for follow up appointment with Dr. Campbell) Discharge Health Status Multidrug resistant organism: No MDRO Diet/Activity/Treatments Diet: Diet as Tolerated Diet comment: would limit Scotch to one a day Activity: as tolerated Skin/Wound/Dressing Care Skin care: can use neosporin or bacitracin on abraision on eye brow Report to your healthcare provider any signs of infection, such as:: increased pain Discharge Data Primary Care Provider: Sukhjinder Campbell Attending Provider: Sukhjinder Campbell Admit Date/Time: 02/13/20 05:20 Quality VTE Deep Vein Thrombosis/Pulmonary Embolism Present on Admission: No
--- NOTE | 2020-02-14 10:44 | PT.IPTN ---
Physical Therapy Treatment Note M2 PT-IP Current Condition Start: 02/13/20 08:56 Freq: NEEDED Status: Active Protocol: Document 02/13/20 13:51 HH (Rec: 02/13/20 14:00 HH [id number]) Physical Therapy Current Condition Current Condition Evaluation Date 02/13/20 Treatment Diagnosis GLF, possible TIA, alcohol intoxication, labyrinthitis, difficulty in wking Onset Date 02/12/20 Weight Bearing Status Weight Bearing Status Full Weight Bearing M3 PT-IP Subjective Start: 02/13/20 08:56 Freq: NEEDED Status: Active Protocol: Document 02/14/20 10:11 LJ (Rec: 02/14/20 10:44 LJ [id number]) Subjective Physical Therapy Visit Type Type Treatment Note Visit Start Time 10:11 Visit Stop Time 10:30 Total Visit Minutes 21 Physical Therapy Visit Comments Patient Comments Pt states she is feeling about the same. Wants to go home M4 PT-IP Mobility and Gait Start: 02/13/20 08:56 Freq: NEEDED Status: Active Protocol: Document 02/14/20 10:11 LJ (Rec: 02/14/20 10:44 LJ [id number]) PT-Bed Mobility Assessment Supine to Sit Supine to Sit Independent Sit to Supine Sit to Supine Independent Scooting Scooting to Edge of Bed Independent PT-Transfer Assessment Sit to and From Stand Sit to and from Stand Standby Assistance Equipment Transfer Assistive Device Front Wheeled Walker Orthotic/Prosthetic Devices or Brace: No Transfers Transfer Destination Bed Transfer Technique Stand Step Pivot Transfer Ability Level of Assist Standby Assistance Comments Mobility Comments Pt in bed upon arrival. Willing to get out of bed and walk in hallway. Pt was independent with all bed mobility. Transfers SBA for monitoring balance. No assistance needed. She did not use her UEs to transfer from bed to standing. Provided FWW for safety. Gait Assessment Gait Gait Assistance Required: Standby Assistance,Contact Guard Assist Distance (Feet) 400 Able to Maintain Weight Bearing Status Yes During Gait Assistive Devices Assistive Device None,Gait Belt,Front Wheeled Walker Orthotic/Prosthetic Devices or Brace: No Gait Deviations General Gait Pattern Decreased Stride Length, Decreased Feet Clearance Factors Limiting Gait Function Factors Limiting Gait Function Decreased Activity Tolerance, Decreased Strength,Poor Balance Comments Gait Comments Pt ambulated in hallway around S nurse's station using FWW. Returned to room and pt ambulated without AD to [facility] and trialed stairs (see stair section). Pt able to carry on conversation and gesure with UEs during ambulation to and from stairs. No incidence of LOB. Pt cued to slow gait speed. Pt returned to room and entered bed independently with a sllightly clumsy plop into bed. Positioned herself and proceeded to call home to arrange for DC ride home. Stair Climbing Assessment Evaluation Level of Assist On Stairs Independent Devices Stair Climbing Assistive Devices Right Railing Technique/Endurance Stair Climbing Direction Ascend and Descend Stair Climbing Technique Step Over Step Number of Steps Climbed 3 Stair Climbing Set # Repetitions (reps) 2 M5 PT-IP Objective Assessments Start: 02/13/20 08:56 Freq: NEEDED Status: Active Protocol: Document 02/13/20 14:38 (Rec: 02/13/20 14:48 [id number]) Orientation Orientation/Cognition Level of Alertness Alert Orientation Name,Age,Birthday,Month,Date, Year,Day of Week,Place, Situation Language Function Ability No Deficits Noted,Hard of Hearing Safety Awareness Understands Safety Issues Memory Description Short Term Impaired Comments Pt reports her short term memory has not been too good since she started getting weaker. Gross Range of Motion Upper Extremity ROM Assessment Within Functional Limits Lower Extremity ROM Assessment Within Functional Limits Strength Upper Extremity Strength Assessment Bilaterally Impaired Shoulder 4-/5 Elbow 4-/5 Lower Extremity Strength Assessment Bilaterally Impaired Hip 4-/5 Knee 4-/5 Coordination Assessment Gross Coordination Gross Coordination WNL Sensation Assessment Sensation Gross Sensation WNL Muscle Tone Muscle Tone WNL Yes M6 PT-IP Treatment Start: 02/13/20 08:56 Freq: NEEDED Status: Active Protocol: Document 02/14/20 10:11 ANGELICA (Rec: 02/14/20 10:44 [id number]) Physical Therapy Treatment Education Education Provided Safety M7 PT-IP Assessment and Plan Start: 02/13/20 08:56 Freq: NEEDED Status: Active Protocol: Document 02/14/20 10:11 ANGELICA (Rec: 02/14/20 10:44 ANGELICA [id number]) PT Summary Assessment and Plan Potential Rehabilitation Potential Good Status of Condition at Evaluation Evolving Summary Impairments Strength,Balance,Gait,Activity Tolerance Assessment Summary Pt independent with bed mobility and SBA with gait. She endorses having poor balance but did not have any LOB during ambulation. She has met goals for PT and is appropriate for DC home today. States she has several walkers at home and will use one if she feels she needs to. Session demonstrated good ambulation. Would benefit from strengthening and balance training Goals Bed Mobility Goal Standby Assistance Transfer Goal Standby Assistance,Cane,Front Wheeled Walker Gait Goal Standby Assistance,Cane,Front Wheel Walker Gait Distance 400 Days to Meet Goals 3 Frequency of Treatment Frequency Of Treatment Once a Day Treatment Plan Physical Therapy Treatment Plan Bed Mobility Training,Transfer Training,Gait Training, Therapeutic Exercise,Balance Retraining,Discharge Planning, Neuromuscular Re-ed Other Recommendations and Next Treatment mobility as ismael Focus check vitals trial for SPC if possible Recommendations To Nursing Amount of Assist Needed Standby Assistance Discharge Recommendations PT Discharge Recommendations Home with Assistance,Home Health Other Discharge Recommendations Expect pt to d/c home if she is medically stable. If not, home health might be beneficial to her to improve her mobility and strength since pt has a disabled that needs 24/7 care from CGs. Transportation Needs at Discharge Private Vehicle
--- NOTE | 2020-02-14 12:08 | CM.DANOTE ---
Discharge Planning/Care Management Case received, EMR reviewed and discussed in Team Rounds. Pt is an 84 year old female who admitted yesterday to care of [facility] clinic physicians. PCP: Dr. Campbell. Dr. Flores: [facility] is covering for weekend and is seeing pt today. PT Scott has worked with pt and cleared her for the home setting. Dr. Flores has now ok'd pt for d/c to home setting and PCP followup in a week. Went to room to check in with pt and noted room empty. RN Candy reports that pt had called to arrange a ride home and had already left for home in company of family. Candy reports she updated pt's daughter on the specifics of the d/c instructions. CM Discharge Assessment Start: 02/14/20 12:07 Freq: Status: Active Protocol: Document 02/14/20 12:07 ITV (Rec: 02/14/20 12:08 ITV [id number]) Discharge Planning Assessment Advance Directives? Yes History Provided By Medical Record Prior Living Arrangements House Household Members spouse Independent with ADL's Yes Is patient alert and oriented? Yes
--- NOTE | 2020-02-14 12:29 | PC.NURSE ---
pt discharged to home following arrival of spouse and dc plan reviewed with pt and spouse and discharged from hospital at this time
== END 2020-02-14 12:05 | disposition home or self-care (01) ==
LOC: ED 05:04 → ICU 05:20
PROVIDERS: Admitting Provider Family Medicine; Emergency Provider Emergency Medicine; Family Provider Family Medicine; PCP Family Medicine; Referring Provider Emergency Medicine; Visit Provider Family Medicine
DX: S00.12XA Contusion of left eyelid and periocular area, initial encounter (principal); S00.81XA Abrasion of other part of head, initial encounter; W19.XXXA Unspecified fall, initial encounter; Y93.K1 Activity, walking an animal; R26.2 Difficulty in walking, not elsewhere classified; F10.229 Alcohol dependence with intoxication, unspecified; Y90.6 Blood alcohol level of 120-199 mg/100 ml; I10 Essential (primary) hypertension; F17.210 Nicotine dependence, cigarettes, uncomplicated; Z11.59 Encounter for screening for other viral diseases; Z23 Encounter for immunization
CPT/HCPCS: 36415; 70450; 70486; 70496; 70498; 70548; 70553; 72125; 80053; 80320; 82550; 84484; 85025; 87635; 87797; 90471; 93005; 97116; 97161; 99284; 99285; G0378; 90715; J1650; Q9967

== ENCOUNTER → 2022-01-30 11:55 | Outpatient (CLI) | payer MEDICARE, SELFPAY ==
[2020-02-13 05:24] VITALS: BMI 18.5
--- NOTE | 2022-01-30 11:57 | DI.RAD.S_ITS ---
PROCEDURE: XR HIP W PEL IF DONE LT 2V INDICATIONS: L hip pain TECHNIQUE: 3 views of the hip were acquired. COMPARISON: None. FINDINGS: Bones: Total right hip prosthesis in place. No evidence of hardware failure loosening. Severe left joint space narrowing with subchondral sclerosis. Femoral head is appropriate contour. No fracture dislocation. Soft tissues: No suspicious soft tissue calcifications or masses. IMPRESSION: Advanced left hip osteoarthritis without fracture or subluxation. 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 on 01/30/2022 at 13:15
== END ==
PROVIDERS: Family Provider Family Medicine; PCP Family Medicine; Referring Provider Physician Assistant Medical; Visit Provider Physician Assistant Medical
DX: M79.606 Pain in leg, unspecified (principal); M16.12 Unilateral primary osteoarthritis, left hip; Z96.641 Presence of right artificial hip joint
CPT/HCPCS: 73502

== ENCOUNTER → 2022-01-31 12:27 | Outpatient (CLI) | payer MEDICARE, SELFPAY ==
[2020-02-13 05:24] VITALS: BMI 18.5
--- NOTE | 2022-01-31 12:30 | DI.US.S_ITS ---
PROCEDURE: US PERIPH VENOUS LOW EXTREM LT INDICATIONS: LLE pain TECHNIQUE: Real-time imaging, as well as color and pulse Doppler interrogation, were performed of the lower extremity deep veins from the inguinal ligament to the popliteal fossa. COMPARISON: None. FINDINGS: The common femoral, femoral and popliteal veins are normally compressible, and free of intraluminal thrombus. Color and pulse Doppler demonstrate normal phasic intraluminal flow. There is normal augmentation response to distal compression maneuver. IMPRESSION: Negative for deep venous thrombosis. Dictated by: Oswaldo Silveira M.D. on 01/31/2022 at 12:32 Approved by: Oswaldo Silveira M.D. on 01/31/2022 at 12:33
== END ==
PROVIDERS: Family Provider Family Medicine; PCP Family Medicine; Referring Provider Physician Assistant Medical; Visit Provider Physician Assistant Medical
DX: I82.409 Acute embolism and thrombosis of unspecified deep veins of unspecified lower extremity (principal)
CPT/HCPCS: 93971

== ENCOUNTER 2022-03-02 18:30 | Emergency (ER) | payer MEDICARE, SELFPAY ==
[2020-02-13 05:24] VITALS: BMI 18.5
[2022-03-02] VITALS (10 sets, daily range): BP systolic 140–175; BP diastolic 72–86; PULSE 81–94; RESP 17–32; TEMP 37.3; O2SAT 92–96; BMI 19.2
--- NOTE | 2022-03-02 18:45 | DI.RAD.S_ITS ---
PROCEDURE: XR CHEST 1V INDICATIONS: Chest pain TECHNIQUE: One view of the chest was acquired. COMPARISON: None. FINDINGS: Surgical changes and devices: None. Lungs and pleura: Hyperexpanded lungs with flattened hemidiaphragms and emphysematous changes in apices. No pleural effusions or pneumothorax. Mediastinum: Mediastinal contours appear normal. Heart size is normal. Bones and chest wall: No suspicious bony lesions. Overlying soft tissues appear unremarkable. IMPRESSION: Hyperexpanded lungs indicative of COPD. No acute finding. Dictated by: Gerry Rivera M.D. on 03/02/2022 at 19:41 Approved by: Gerry Rivera M.D. on 03/02/2022 at 19:41
--- NOTE | 2022-03-02 18:45 | ED.CHESTPAIN ---
HPI - Chest Pain General Chief Complaint: Chest Pain Stated Complaint: Chest pains Time Seen by Provider: 03/02/22 18:45 History of Present Illness HPI narrative: 86F nonsmoker with noncontributory medical history presents with her son in the chief complaint of chest discomfort across her anterior chest that she noticed over the course of the day. She denies any history of the same nor any obvious provocation, palliation or radiation. She denies associated symptoms such as dizziness, weakness or lightheadedness. She has no nausea or vomiting and has had no fever or chills. She denies recent travel, trauma, history of blood clot or known cancer. She denies any recent unexplained fatigue, dyspnea or exercise intolerance. She has had some vague nonspecific cough in the absence sputum production. Related Data Home Medications Medication Instructions Recorded Confirmed No Known Home Medications 02/13/20 01/30/22 Allergies Allergy/AdvReac Type Severity Reaction Status Date / Time erythromycin base Allergy Verified 03/02/22 18:46 Review of Systems Review of Systems Narrative: GENERAL: Denies chills, fatigue, malaise, fever, sweats. HEENT: Denies sinus pain, ear pain, sore throat, difficulty swallowing, dizziness. RESPIRATORY: See HPI CARDIOVASCULAR: See HPI GASTROINTESTINAL: Denies nausea, vomiting, abdominal pain, diarrhea, constipation, melena. : Denies dysuria, frequency, incontinence, hematuria, urinary retention. MUSCULOSKELETAL: denies weakness, joint pain, or bony pain SKIN: Denies rash, skin lesions, or other NEUROLOGIC: Denies weakness, headache, numbness, change in speech, confusion, seizures, incoordination. PSYCHIATRIC: No concerning psychosocial issues. 12 point review of systems is negative except for those stated above Patient History Medical History (Updated 03/02/22 @ 23:12 by Lefty Rocha DO) Deep vein thrombosis Osteopenia Thrombocytopenia Surgical History History of hip replacement (11/24/02) S/P total abdominal hysterectomy and bilateral salpingo-oophorectomy (~1976) Status post breast biopsy Social History household members: spouse Smoking Status: Current every day smoker alcohol intake: current Smoking Status: Current every day smoker alcohol intake frequency: 0-2 drinks per day Substance Use Type: does not use Exam Narrative Exam Narrative: GENERAL: [86] year old patient appears stated age. Well-developed patient, in mild distress. HEAD: Atraumatic. Normocephalic. EYES: Pupils equal round and reactive. Extraocular motions intact. No scleral icterus. No injection or drainage. ENT: Nose without bleeding, purulent drainage. Throat without erythema, tonsillar hypertrophy or exudate. Airway patent. NECK: Trachea midline. Non tender CARDIOVASCULAR: Regular rate and rhythm without murmurs, gallops, or rubs. RESPIRATORY: Clear to auscultation. Breath sounds equal bilaterally. No wheezes, rales, or rhonchi. GASTROINTESTINAL: Abdomen soft, non-tender, nondistended. EXTREMITIES: No edema or joint tenderness. BACK: Nontender without deformity or crepitance. No flank tenderness. NEURO: AOx3. SKIN: No rash or erythema of visible areas Initial Vital Signs Initial Vital Signs: Vital Signs Temperature 99.2 F 03/02/22 18:40 Pulse Rate 94 H 03/02/22 18:40 Respiratory Rate 17 03/02/22 18:40 Blood Pressure 175/86 H 03/02/22 18:40 Pulse Oximetry 94 03/02/22 18:40 Oxygen Delivery Method 03/02/22 18:40 Scores HEART Score Heart Score history: Slightly Suspicious Heart Score EKG: Normal Heart Score Age: > or = 65 years old Heart Score risk factors: No known risk factors Heart Score troponin: < or = to normal limit Heart Score Total: 2 Course Orders Ordered: ED Orders 03/02/22 18:45 XR chest 1V Stat EKG-12 Lead Stat 03/02/22 18:49 Comprehensive Metabolic Panel Stat D Dimer Stat Lipase Stat Magnesium Stat Partial Thromboplastin Time Stat Procalcitonin Stat Prothrombin Time INR Stat Troponin & CK Cardiac Panel Stat 03/02/22 19:14 Complete Blood Count AUTO DIFF Stat 03/02/22 21:28 Troponin & CK Cardiac Panel Stat Vital Signs Vital signs: Vital Signs - 8 hr 03/02/22 20:00 03/02/22 20:00 03/02/22 20:30 Pulse Rate 81 Respiratory Rate 25 H Blood Pressure 152/75 H 153/74 H Pulse Oximetry 95 03/02/22 20:30 03/02/22 21:00 10/13/22 21:00 Pulse Rate 83 85 Respiratory Rate 26 H 27 H Blood Pressure 142/73 H Pulse Oximetry 94 92 03/02/22 21:30 03/02/22 21:30 03/02/22 22:00 Pulse Rate 83 Respiratory Rate 25 H Blood Pressure 140/72 158/85 H Pulse Oximetry 93 03/02/22 22:00 03/02/22 22:30 03/02/22 22:30 Pulse Rate 88 84 Respiratory Rate 25 H 32 H Blood Pressure 151/76 H Pulse Oximetry 93 93 MDM - Chest Pain Lab Data Result diagrams: 03/02/22 19:14 03/02/22 18:49 Labs: Lab Results 03/02/22 03/02/22 03/02/22 Range/Units 18:25 18:49 18:49 WBC (4.5-11.0) X10^3/uL RBC (4.0-5.2) X10^6/uL Hgb (12.0-16.0) g/dL Hct (36-46) % MCV (80-100) fL MCH (26-34) PG MCHC (30-36) % RDW (11.6-14.8) % Plt Count Neut % (Auto) (50-75) % Lymph % (Auto) (25-40) % Mccracken % (Auto) (3-14) % Eos % (Auto) (2-4) % Baso % (Auto) (0-2) % Neut # (Auto) (4168-5187) /uL Lymph # (Auto) (2789-5874) /uL Mccracken # (Auto) (0-900) /uL Eos # (Auto) (0-450) /uL Baso # (Auto) (0-100) /uL PT 11.8 (10.1-12.7) SECONDS INR 1.0 (0.9-1.3) APTT 33 (26-36) SECONDS D-Dimer (<500) ng/ml Sodium 137 (137-145) mmol/L Potassium 4.2 (3.4-5.1) mmol/L Chloride 102 (98-107) mmol/L Carbon Dioxide 25 (22-32) mmol/L BUN 28 H (7-17) mg/dL Creatinine 0.73 (0.52-1.04) mg/dL Estimated GFR > 60 (>60) mL/min BUN/Creatinine Ratio 38.4 H (6-22) Glucose 114 H (80-110) mg/dL Calcium 9.4 (8.4-10.2) mg/dL Magnesium 1.9 (1.6-2.3) mg/dL Total Bilirubin 1.5 H (0.2-1.3) mg/dL AST 28 (14-36) IU/L ALT 17 (<35) IU/L Alkaline Phosphatase 93 (38-126) U/L Total Creatine Kinase 41 (30-135) U/L CK-MB (CK-2) TNP CK-MB (CK-2) Rel Index TNP Troponin I < 0.012 (0.01-0.034) ng/mL Total Protein 7.6 (6.3-8.2) g/dL Albumin 4.2 (3.5-5.0) g/dL Globulin 3.4 (1.7-4.1) g/dL Albumin/Globulin Ratio 1.2 (1.0-2.8) Lipase 79 (23-300) U/L Procalcitonin (<0.5) ng/mL SARS-CoV-2 (PCR) Negative (Negative) 03/02/22 03/02/22 03/02/22 Range/Units 18:49 18:49 19:14 WBC 10.5 (4.5-11.0) X10^3/uL RBC 4.58 (4.0-5.2) X10^6/uL Hgb 14.5 (12.0-16.0) g/dL Hct 42.9 (36-46) % MCV 93.8 (80-100) fL MCH 31.7 (26-34) PG MCHC 33.8 (30-36) % RDW 13.3 (11.6-14.8) % Plt Count TNP Neut % (Auto) 76.1 H (50-75) % Lymph % (Auto) 13.6 L (25-40) % Mccracken % (Auto) 9.0 (3-14) % Eos % (Auto) 0.6 L (2-4) % Baso % (Auto) 0.7 (0-2) % Neut # (Auto) 8000 H (9339-6895) /uL Lymph # (Auto) 1400 (5978-1033) /uL Mccracken # (Auto) 900 (0-900) /uL Eos # (Auto) 100 (0-450) /uL Baso # (Auto) 100 (0-100) /uL PT (10.1-12.7) SECONDS INR (0.9-1.3) APTT (26-36) SECONDS D-Dimer 522 H (<500) ng/ml Sodium (137-145) mmol/L Potassium (3.4-5.1) mmol/L Chloride (98-107) mmol/L Carbon Dioxide (22-32) mmol/L BUN (7-17) mg/dL Creatinine (0.52-1.04) mg/dL Estimated GFR (>60) mL/min BUN/Creatinine Ratio (6-22) Glucose (80-110) mg/dL Calcium (8.4-10.2) mg/dL Magnesium (1.6-2.3) mg/dL Total Bilirubin (0.2-1.3) mg/dL AST (14-36) IU/L ALT (<35) IU/L Alkaline Phosphatase (38-126) U/L Total Creatine Kinase (30-135) U/L CK-MB (CK-2) CK-MB (CK-2) Rel Index Troponin I (0.01-0.034) ng/mL Total Protein (6.3-8.2) g/dL Albumin (3.5-5.0) g/dL Globulin (1.7-4.1) g/dL Albumin/Globulin Ratio (1.0-2.8) Lipase (23-300) U/L Procalcitonin 0.19 (<0.5) ng/mL SARS-CoV-2 (PCR) (Negative) 03/02/22 Range/Units 21:28 WBC (4.5-11.0) X10^3/uL RBC (4.0-5.2) X10^6/uL Hgb (12.0-16.0) g/dL Hct (36-46) % MCV (80-100) fL MCH (26-34) PG MCHC (30-36) % RDW (11.6-14.8) % Plt Count Neut % (Auto) (50-75) % Lymph % (Auto) (25-40) % Mccracken % (Auto) (3-14) % Eos % (Auto) (2-4) % Baso % (Auto) (0-2) % Neut # (Auto) (5932-1430) /uL Lymph # (Auto) (5572-6069) /uL Mccracken # (Auto) (0-900) /uL Eos # (Auto) (0-450) /uL Baso # (Auto) (0-100) /uL PT (10.1-12.7) SECONDS INR (0.9-1.3) APTT (26-36) SECONDS D-Dimer (<500) ng/ml Sodium (137-145) mmol/L Potassium (3.4-5.1) mmol/L Chloride (98-107) mmol/L Carbon Dioxide (22-32) mmol/L BUN (7-17) mg/dL Creatinine (0.52-1.04) mg/dL Estimated GFR (>60) mL/min BUN/Creatinine Ratio (6-22) Glucose (80-110) mg/dL Calcium (8.4-10.2) mg/dL Magnesium (1.6-2.3) mg/dL Total Bilirubin (0.2-1.3) mg/dL AST (14-36) IU/L ALT (<35) IU/L Alkaline Phosphatase (38-126) U/L Total Creatine Kinase 35 (30-135) U/L CK-MB (CK-2) TNP CK-MB (CK-2) Rel Index TNP Troponin I < 0.012 (0.01-0.034) ng/mL Total Protein (6.3-8.2) g/dL Albumin (3.5-5.0) g/dL Globulin (1.7-4.1) g/dL Albumin/Globulin Ratio (1.0-2.8) Lipase (23-300) U/L Procalcitonin (<0.5) ng/mL SARS-CoV-2 (PCR) (Negative) Imaging Data Chest x-ray: Radiologist's Impression: Himanshu Herr??86??F??1935 ? Allergy/Adv: erythromycin base Close Chest X-Ray (Signed) Gerry Rivera - 03/02/22 Vascular Ultrasound (Signed) Oswaldo Silveira - 01/31/22 Hip X-Ray (Signed) CornejoDoyle stevenson - 01/30/22 Brain MRI (Signed) Imelda Hernandez - 02/13/20 Telemetry Strips 02/13/20 Head/Neck CTA (Signed) Mary,Imelda - 02/13/[address] (Signed) Mary,Imelda - 02/13/[address] (Signed) Mary,Imelda - 02/13/[address] (Signed) Mary,Imelda - 02/13/[address] (Signed) Jordana,Oswaldo - 01/18/[address] (Signed) Jordana,Oswaldo - 01/18/18 Face X-Ray (Signed) PolancoSahil - 01/18/18 [place] [address] XRay Report Signed Patient: Himanshu Herr MR#: [id number] : 1935 Acct:[id number] Age/Sex: 86 / F Date of Service: 03/02/22 Loc: ED Accession Number: [id number] ?? Procedure: XR chest 1V Ordering Provider: Lefty Rocha D.O. PROCEDURE:? XR CHEST 1V ? INDICATIONS:? Chest pain ? TECHNIQUE:? One view of the chest was acquired.? ? COMPARISON:? None. ? FINDINGS:? ? Surgical changes and devices:? None.? ? Lungs and pleura:? Hyperexpanded lungs with flattened hemidiaphragms and emphysematous changes in apices.? No pleural effusions or pneumothorax.? ? Mediastinum:? Mediastinal contours appear normal.? Heart size is normal.? ? Bones and chest wall:? No suspicious bony lesions.? Overlying soft tissues appear unremarkable.? ? IMPRESSION:? Hyperexpanded lungs indicative of COPD.? No acute finding. ? ? Dictated by: Gerry Rivera M.D. on 03/02/2022 at 19:41 ? ? Approved by: Gerry Rivera M.D. on 03/02/2022 at 19:41? MDM Narrative Medical decision making narrative: Multiple causes of chest pain considered including WI, PE, pneumothorax, pneumonia, aortic dissection, and pleurisy. Patient reports no radiation, no diaphoresis, no provocation with exertion, and no vomiting Patient's symptoms improved over duration of stay with above-stated therapies. Low heart score, PE thought unlikely given negative D-dimer when corrected for age, no advanced imaging noted Findings and discharge diagnosis discussed with patient/family followed by verbalization of understanding Return precautions discussed with patient/family whom verbalize understanding. Discharge Plan Departure Patient Disposition: Home Clinical Impression: Atypical chest pain Instructions: DI for Atypical Chest Pain Activity Restrictions/Additional Instructions: *You have been diagnosed with [atypical chest pain. As we discussed your history and physical exam are reassuring and the combination of this, EKGs, blood work and imaging would suggest against the likelihood of heart attack, blood clot] *What to do: *Please continue to take your regular medications as directed. [ ] New medication prescriptions sent to your pharmacy: [ ] [ ] New medication written as a paper prescription [ x] No new medications given *Please follow up with your primary care provider in 2-3 days, call for an appointment. Let them know you were seen in the Emergency Department and that we ask that you be seen in follow up. We will electronically transmit a record of today's note if your PCP is in our system *If you do not have a primary care provider please contact the [facility] Resource line at [phone]. They will ask some questions about your medical history and help get you set up with a doctor in the community. *Return to Emergency Department if you should have any new, worsening or concerning symptoms, such as [fever greater than 101 F, shaking chills, worsening pain, persistent vomiting or other bothersome symptoms] Prescriptions: No Action No Known Home Medications Referrals: Sukhjinder Campbell MD [Primary Care Provider] - Visit Report Forms: Patient Portal/API
[2022-03-02 19:05] LABS: Prothrombin Time 11.8 SECONDS (10.1-12.7)
[2022-03-02 19:08] LABS: PTT Partial Thromboplastin Tim 33 SECONDS (26-36)
[2022-03-02 19:10] LABS: Alanine Aminotransferase 17 IU/L (<35); Albumin 4.2 g/dL (3.5-5.0); Albumin Globulin Ratio 1.2 (1.0-2.8); Alkaline Phosphatase 93 U/L (38-126); Aspartate Aminotransferase 28 IU/L (14-36); BUN Creatinine Ratio 38.4 (6-22); Bilirubin Total 1.5 mg/dL (0.2-1.3); Blood Urea Nitrogen 28 mg/dL (7-17); Calcium 9.4 mg/dL (8.4-10.2); Carbon Dioxide 25 mmol/L (22-32); Chloride 102 mmol/L (98-107); Creatine Kinase 41 U/L (30-135); Estimated Glomerular Filt Rate > 60 mL/min (>60); Globulin 3.4 g/dL (1.7-4.1); Glucose 114 mg/dL (80-110); HEMOLYSIS 33 (0-50); Lipase 79 U/L (23-300); Magnesium 1.9 mg/dL (1.6-2.3); Potassium 4.2 mmol/L (3.4-5.1); Sodium 137 mmol/L (137-145); Total Protein 7.6 g/dL (6.3-8.2)
[2022-03-02 19:21] LABS: COVID19 -Nasal RAPID Negative (Negative)
[2022-03-02 19:21] LABS: Troponin I < 0.012 ng/mL (0.01-0.034)
[2022-03-02 19:26] LABS: D Dimer 522 ng/ml (<500)
[2022-03-02 19:48] LABS: Procalcitonin 0.19 ng/mL (<0.5)
[2022-03-02 19:56] LABS: Add Manual Diff / Slide Review NO; Basophils Absolute Auto 100 /uL (0-100); Basophils Percent Auto 0.7 % (0-2); Eosinophils Absolute Auto 100 /uL (0-450); Eosinophils Percent Auto 0.6 % (2-4); Hematocrit 42.9 % (36-46); Hemoglobin 14.5 g/dL (12.0-16.0); Lymphocytes Absolute Auto 1400 /uL (1100-4500); Lymphocytes Percent Auto 13.6 % (25-40); Mean Corpuscular HGB Conc 33.8 % (30-36); Mean Corpuscular Hemoglobin 31.7 PG (26-34); Mean Corpuscular Volume 93.8 fL (80-100); Monocytes Absolute Auto 900 /uL (0-900); Neutrophils Absolute Auto 8000 /uL (1500-7000); Neutrophils Percent Auto 76.1 % (50-75); Red Blood Cell Count 4.58 X10^6/uL (4.0-5.2); Red Cell Distribution Width 13.3 % (11.6-14.8); White Blood Cell Count 10.5 X10^3/uL (4.5-11.0)
[2022-03-02 21:57] LABS: Creatine Kinase 35 U/L (30-135)
[2022-03-02 22:10] LABS: Troponin I < 0.012 ng/mL (0.01-0.034)
== END 2022-03-02 23:24 | disposition home or self-care (01) ==
PROVIDERS: Emergency Provider Emergency Medicine; Family Provider Family Medicine; PCP Family Medicine
DX: R07.89 Other chest pain (principal); Z20.822 Contact with and (suspected) exposure to COVID-19
CPT/HCPCS: 36415; 71045; 80053; 82550; 83690; 83735; 84145; 84484; 85025; 85379; 85610; 85730; 87635; 99283; 99284; C9803

== ENCOUNTER → 2022-04-04 15:57 | Outpatient (CLI) | payer MEDICARE, SELFPAY ==
[2020-02-13 05:24] VITALS: BMI 18.5
[2022-04-04 17:22] LABS: COVID19 -Nasal RAPID Negative (Negative)
== END ==
PROVIDERS: Family Provider Family Medicine; PCP Internal Medicine; Referring Provider Internal Medicine; Visit Provider Internal Medicine
DX: Z20.822 Contact with and (suspected) exposure to COVID-19 (principal)
CPT/HCPCS: 87635; C9803

== ENCOUNTER → 2022-04-05 08:36 | Outpatient (CLI) | payer MEDICARE, SELFPAY ==
[2020-02-13 05:24] VITALS: BMI 18.5
--- NOTE | 2022-04-12 08:55 | P.PFT.S_ITS ---
Pulmonary Function Test Referral & Results Date Patient Seen: 04/05/22 Requesting provider: Don Clarke Indication: COPD Results: The spirometry demonstrates an FVC of 1.77 L which is 82% of predicted. The FEV1 was measured at 0.83 L which is 52% of predicted. The FEV1/FVC ratio was 47 which is 65% of predicted. Following the administration of bronchodilator there was no appreciable change. Patient declined to perform lung volumes in the body box, and diffusing capacity Interpretation: Forced spirometry demonstrates severe obstructive lung disease with FEV1 less than 1 L as above. There is not appear to be any objective evidence of improvement after bronchodilator although apparently subjectively patient reported some minor improvement Clinical correlation suggested
== END ==
PROVIDERS: Family Provider Family Medicine; PCP Internal Medicine; Referring Provider Internal Medicine; Visit Provider Internal Medicine
DX: J44.9 Chronic obstructive pulmonary disease, unspecified (principal); F17.210 Nicotine dependence, cigarettes, uncomplicated
CPT/HCPCS: 94060; 94729

== ENCOUNTER → 2023-04-24 15:54 | Outpatient (CLI) | payer MEDICARE, SELFPAY ==
[2020-02-13 05:24] VITALS: BMI 18.5
--- NOTE | 2023-04-24 15:57 | DI.RAD.S_ITS ---
PROCEDURE: XR LUMBAR SPINE 2-3V INDICATIONS: back pain TECHNIQUE: 3 views of the lumbar spine were acquired. COMPARISON: None. FINDINGS: Bones: 5 [id number] vertebrae are present. There is normal bony alignment. No vertebral body compression fractures. No suspicious bony lesions. Degenerative convex left thoracolumbar scoliosis. Degenerative disc space narrowing and hypertrophic facet joints noted at L5-S1. Soft tissues: Overlying bowel gas pattern is normal. No suspicious soft tissue calcifications. Atherosclerotic calcification in the abdominal aorta noted without evidence of aneurysm. IMPRESSION: Degenerative disc disease, arthropathy and aortic atherosclerosis Approved by: Doyle Cornejo M.D. on 04/24/2023 at 19:09
--- NOTE | 2023-04-24 15:57 | DI.RAD.S_ITS ---
PROCEDURE: XR PELVIS 1-2V INDICATIONS: left hip patent TECHNIQUE: 1 view of the lower pelvis acquired. COMPARISON: None. FINDINGS: Bones: Patient is status post right hip arthroplasty, with hardware components in expected positions. The hip joint appears congruent. The visualized bony structures appear intact. Severe left hip joint space narrowing without femoral head remodeling Soft tissues: Overlying postoperative changes are noted. No suspicious soft tissue densities. IMPRESSION: Severe left hip joint space narrowing without remodeling. Total right hip arthroplasty in good position Approved by: Doyle Cornejo M.D. on 04/24/2023 at 19:08
== END ==
PROVIDERS: Family Provider Family Medicine; PCP Internal Medicine; Referring Provider Internal Medicine; Visit Provider Internal Medicine
DX: M51.37 Other intervertebral disc degeneration, lumbosacral region (principal); M47.817 Spondylosis without myelopathy or radiculopathy, lumbosacral region; I70.0 Atherosclerosis of aorta; M25.559 Pain in unspecified hip; M54.9 Dorsalgia, unspecified; Z96.641 Presence of right artificial hip joint
CPT/HCPCS: 72100; 72170

== ENCOUNTER → 2024-04-14 14:36 | Outpatient (CLI) | payer MEDICARE, SELFPAY ==
[2024-01-14 13:03] VITALS: BMI 18.5
[2024-04-14 16:18] LABS: Add Manual Diff / Slide Review NO; Basophils Absolute Auto 100 /uL (0-100); Eosinophils Absolute Auto 500 /uL (0-450); Eosinophils Percent Auto 5.4 % (2-4); Hemoglobin 14.8 g/dL (12.0-16.0); Lymphocytes Absolute Auto 2400 /uL (1100-4500); Lymphocytes Percent Auto 28.7 % (25-40); Mean Corpuscular HGB Conc 32.9 % (30-36); Mean Corpuscular Hemoglobin 31.5 PG (26-34); Mean Corpuscular Volume 95.7 fL (80-100); Monocytes Absolute Auto 700 /uL (0-900); Monocytes Percent Auto 8.1 % (3-14); Neutrophils Absolute Auto 4700 /uL (1500-7000); Neutrophils Percent Auto 56.8 % (50-75); Red Blood Cell Count 4.71 X10^6/uL (4.0-5.2); Red Cell Distribution Width 13.5 % (11.6-14.8); White Blood Cell Count 8.3 X10^3/uL (4.5-11.0)
[2024-04-14 16:34] LABS: Alanine Aminotransferase 17 IU/L (<35); Albumin 4.3 g/dL (3.5-5.0); Albumin Globulin Ratio 1.7 (1.0-2.8); Alkaline Phosphatase 93 U/L (38-126); Aspartate Aminotransferase 25 IU/L (14-36); BUN Creatinine Ratio 39.8 (6-22); Bilirubin Total 0.8 mg/dL (0.2-1.3); Blood Urea Nitrogen 41 mg/dL (7-17); Calcium 10.1 mg/dL (8.4-10.2); Carbon Dioxide 30 mmol/L (22-32); Chloride 102 mmol/L (98-107); Estimated Glomerular Filt Rate 52 mL/min (>60); Globulin 2.6 g/dL (1.7-4.1); Glucose 100 mg/dL (80-110); HEMOLYSIS < 15 (0-50); Potassium 4.8 mmol/L (3.4-5.1); Sodium 140 mmol/L (137-145); Total Protein 6.9 g/dL (6.3-8.2)
== END ==
PROVIDERS: Family Provider Family Medicine; PCP Internal Medicine; Referring Provider Internal Medicine; Visit Provider Internal Medicine
DX: J44.9 Chronic obstructive pulmonary disease, unspecified (principal); I10 Essential (primary) hypertension; D64.9 Anemia, unspecified
CPT/HCPCS: 36415; 80053; 85025

== ENCOUNTER 2024-07-01 11:30 | Outpatient (RCR) | payer MEDICARE, SELFPAY ==
[2024-01-14 13:03] VITALS: BMI 18.5
--- NOTE | 2024-05-15 12:15 | PT.OIE ---
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) S/P total abdominal hysterectomy and bilateral salpingo-oophorectomy (~1976) Status post breast biopsy Visit Care Team Role Provider Type Don Clarke MD Attending Provider Physician Family Provider Primary Care Provider Referring Provider Specialty: Internal Medicine Address: [address] [place] [address], [address], [facility] Email: [email or web address] Physical Therapy Initial Evaluation PT-OP-A Visit Information Start: 05/15/24 13:34 Freq: Status: Active Protocol: Document 05/15/24 11:30 DCW (Rec: 05/15/24 13:43 [facility] [id number]) Out-Patient Physical Therapy Visit Information Visit Information Visit Type Initial Evaluation Visit Start Time 11:30 Visit Stop Time 12:15 Visit Number 1 Number of OTR TRUCK DRIVER Visits 0 Evaluation Information Evaluation Date 05/15/24 PT-OP-B Current Condition Start: 05/15/24 13:34 Freq: Status: Active Protocol: Document 05/15/24 11:30 DCW (Rec: 05/15/24 13:43 [facility] [id number]) Current Condition History of Current Condition Current Complaints Fear of Falling, feeling wobbly History of Current Condition Pt is an 88 year old female presenting with complaints of worsening balance. Pt has been using a SPC for the past 5-6 months to help with stability. Pt attended the free public balance screening at [facility] two months ago, which showed there were enough concerns to request a referral for a balance evaluation. Pt reports that she has not had any falls, but has been very afraid of the possibility of falling for a year or so now. Uses a SPC out of the house, does not us an AD inside. Pt very hard of hearing Treatment Goals Patient/Caregiver Goals Decrease fear of falling and decrease feeling wobbly PT-OP-C Subjective Start: 05/15/24 13:34 Freq: Status: Active Protocol: Document 05/15/24 11:30 DCW (Rec: 05/15/24 13:43 DCW [id number]) OP-PT Subjective Patient Comments Patient Comments My balance is the problem. PT-OP-D Balance Start: 05/15/24 13:34 Freq: Status: Active Protocol: Document 05/15/24 11:30 DCW (Rec: 05/15/24 13:43 DCW [id number]) Balance Tests Sky Balance Test Sky Balance Test Score 43/56 Sky Impairment Rating 20 to 39% Impaired (Score 34- 44) Sky Balance Assessment Evaluation Sitting to Standing Ability Independent w/out Hands Unsupported Stance Safely- 2 minutes Sitting Unsupported, Feet on Floor Safely- 2 minutes Standing to Sitting Ability Safely, Minimal Hand Use Transfer Ability Safely, Minimal Hand Use Unsupported Stance- Eyes Closed Supervision, 10 seconds Unsupported Stance- Eyes Open Supervision to maintain Reaching Forward Standing Safely, 5 inches Pick- Up Object From Floor Supervision Look Behind Shoulder - Standing Shifts Weight Unilateral Turning 360 Degrees Turns slowly, but safely Unsupported Stance, Alternating Feet on 4 Steps w/Supervision Stair Unsupported Tandem Stance Holds Tandem- 30 seconds Unilateral Leg Stance Lifts Leg/Unable to Hold Total Score Sky Total Score (out of 56 points) 43 Sky Impairment Rating 20 to 39% Impaired (Score 34- 44) PT-OP-E Functional Tests Start: 05/15/24 13:34 Freq: Status: Active Protocol: Document 05/15/24 11:30 DCW (Rec: 05/15/24 13:43 DCW [id number]) Functional Tests Dynamic Gait Index (DGI) Score PT-OP-M Strength Start: 05/15/24 13:34 Freq: Status: Active Protocol: Document 05/15/24 11:30 DCW (Rec: 05/15/24 13:43 DCW [id number]) Hip Strength Hip Manual Muscle Testing Right Flexion (L2) 4- Good- Abduction 4- Good- Adduction 4+ Good+ External Rotation 4+ Good+ Internal Rotation 4+ Good+ Left Flexion (L2) 4 Good Abduction 4 Good Adduction 4+ Good+ External Rotation 4+ Good+ Internal Rotation 4+ Good+ Knee Strength Knee Manual Muscle Testing Right Flexion (S2) 4+ Good+ Extension (L3) 4+ Good+ Left Flexion (S2) 4+ Good+ Extension (L3) 4+ Good+ Ankle/Foot Strength Ankle and Foot Manual Muscle Testing Right Dorsiflexion (L4) 4+ Good+ Left Dorsiflexion (L4) 4+ Good+ PT-OP-T Assessment and Plan Start: 05/15/24 13:34 Freq: Status: Active Protocol: Document 05/15/24 11:30 DCW (Rec: 05/16/24 09:43 DCW [id number]) Physical Therapy Assessment Rehab Potential Rehabilitation Potential Good Evaluation Complexity Number of Personal Factors/Comorbidities 3 or More Number of Body Systems Impaired 4 or More Clinical Presentation at Evaluation Unstable Impairments Impairments Activity Tolerance,Balance, Functional Activities, Functional Mobility,Strength Goals Three Impairment Right hip weakness (4-/5) in flexion and abduction Intermediate Goal (LTG) Increased hip strength with an MMT of at least 4/5 in all tested planes in order to improve stability of the hips while walking. LTG Duration 07/16/24 Two Impairment Pt Sky score (43/56) indicates increased falls risk Intermediate Goal (LTG) Pt to demonstrate improvement in Sky score by at least four points to 47/56 in order to indicate a decreased risk of falls LTG Duration 07/16/24 One Impairment Pt does not have an appropriate home exercise program Short Term Goal (STG) Pt to be independent and compliant with an appropriate HEP STG Duration 06/15/24 Assessment Summary Assessment Pt presents with signs and symptoms consisitent with mild increase in falls risk. Pt dynamic balance doing well, with a DGI score of 20/24, however static balance indicates an increased falls risk, with pt scoring a 43/56. Additionally, pt has some R>L hip weakness, especially in right hip flexion and abduction. Pt will likely do well with skilled therapeutic intervention focusing on balance, LE strengthening, and implementation of an appropriate HEP. Pt is doing fairly well overall for her age, is significantly hard of hearing. Physical Therapy Plan Frequency and Duration Frequency of Treatment 1-2x/week Plan of Care Start Date 05/15/24 Plan of Care End Date 07/16/24 Therapeutic Interventions Therapeutic Interventions Balance Training,Home Exercise Program,Manual Therapy, Neuromuscular Re-education, Patient/Caregiver Education, Self-Care/Home Management, Therapeutic Activities, Therapeutic Exercises Next Visit Focus/Plan Next Note Type Treatment Note Next Visit Plan Balance training, hip strengthening
--- NOTE | 2024-05-15 12:16 | PT.OPPOC ---
Physical, Occupational & Speech Therapy At [facility] Current Diagnoses Unsteadiness on feet (05/15/24) Unspecified abnormalities of gait and mobility (05/15/24) Visit Care Team Role Provider Type Don Clarke MD Attending Provider Physician Family Provider Primary Care Provider Referring Provider Specialty: Internal Medicine Address: [address] [place] [address], [address], [facility] Email: [email or web address] Plan Of Care PT-OP-B Current Condition Start: 05/15/24 13:34 Freq: Status: Active Protocol: Document 05/15/24 11:30 DCW (Rec: 05/15/24 13:43 DCW [id number]) Current Condition History of Current Condition Current Complaints Fear of Falling, feeling wobbly History of Current Condition Pt is an 88 year old female presenting with complaints of worsening balance. Pt has been using a SPC for the past 5-6 months to help with stability. Pt attended the free public balance screening at [facility] two months ago, which showed there were enough concerns to request a referral for a balance evaluation. Pt reports that she has not had any falls, but has been very afraid of the possibility of falling for a year or so now. Uses a SPC out of the house, does not us an AD inside. Pt very hard of hearing Treatment Goals Patient/Caregiver Goals Decrease fear of falling and decrease feeling wobbly PT-OP-T Assessment and Plan Start: 05/15/24 13:34 Freq: Status: Active Protocol: Document 05/15/24 11:30 DCW (Rec: 05/16/24 09:43 DCW [id number]) Physical Therapy Assessment Rehab Potential Rehabilitation Potential Good Evaluation Complexity Number of Personal Factors/Comorbidities 3 or More Number of Body Systems Impaired 4 or More Clinical Presentation at Evaluation Unstable Impairments Impairments Activity Tolerance,Balance, Functional Activities, Functional Mobility,Strength Goals Three Impairment Right hip weakness (4-/5) in flexion and abduction Oyster Harvester Goal (LTG) Increased hip strength with an MMT of at least 4/5 in all tested planes in order to improve stability of the hips while walking. LTG Duration 07/16/24 Two Impairment Pt Sky score (43/56) indicates increased falls risk Shelter Goal (LTG) Pt to demonstrate improvement in Sky score by at least four points to 47/56 in order to indicate a decreased risk of falls LTG Duration 07/16/24 One Impairment Pt does not have an appropriate home exercise program Short Term Goal (STG) Pt to be independent and compliant with an appropriate HEP STG Duration 06/15/24 Assessment Summary Assessment Pt presents with signs and symptoms consisitent with mild increase in falls risk. Pt dynamic balance doing well, with a DGI score of 20/24, however static balance indicates an increased falls risk, with pt scoring a 43/56. Additionally, pt has some R>L hip weakness, especially in right hip flexion and abduction. Pt will likely do well with skilled therapeutic intervention focusing on balance, LE strengthening, and implementation of an appropriate HEP. Pt is doing fairly well overall for her age, is significantly hard of hearing. Physical Therapy Plan Frequency and Duration Frequency of Treatment 1-2x/week Plan of Care Start Date 05/15/24 Plan of Care End Date 07/16/24 Therapeutic Interventions Therapeutic Interventions Balance Training,Home Exercise Program,Manual Therapy, Neuromuscular Re-education, Patient/Caregiver Education, Self-Care/Home Management, Therapeutic Activities, Therapeutic Exercises Next Visit Focus/Plan Next Note Type Treatment Note Next Visit Plan Balance training, hip strengthening Plan of Care Dates Plan of Care Start Date 05/15/24 Plan of Care End Date 07/16/24 Electronically Signed by: Alfonso Ramos, PT 05/16/24 0944 If you are in agreement with this Plan of Care, please return a signed and dated copy. I have reviewed this Plan of Care and certify that the skilled therapy services above are required to meet the patient?s needs. Physician Signature Date Printed Name and Credentials Clinical Instructor Signature Printed Name and Credentials
--- NOTE | 2024-05-16 09:43 | PT.OIE ---
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) S/P total abdominal hysterectomy and bilateral salpingo-oophorectomy (~1976) Status post breast biopsy Visit Care Team Role Provider Type Don Clarke MD Attending Provider Physician Family Provider Primary Care Provider Referring Provider Specialty: Internal Medicine Address: [address] [place] [address], [address], [facility] Email: [email or web address] Physical Therapy Initial Evaluation PT-OP-A Visit Information Start: 05/15/24 13:34 Freq: Status: Active Protocol: Document 05/15/24 11:30 DCW (Rec: 05/15/24 13:43 [facility] [id number]) Out-Patient Physical Therapy Visit Information Visit Information Visit Type Initial Evaluation Visit Start Time 11:30 Visit Stop Time 12:15 Visit Number 1 Number of BAD CLOTH CHECKER Visits 0 Evaluation Information Evaluation Date 05/15/24 PT-OP-B Current Condition Start: 05/15/24 13:34 Freq: Status: Active Protocol: Document 05/15/24 11:30 DCW (Rec: 05/15/24 13:43 [facility] [id number]) Current Condition History of Current Condition Current Complaints Fear of Falling, feeling wobbly History of Current Condition Pt is an 88 year old female presenting with complaints of worsening balance. Pt has been using a SPC for the past 5-6 months to help with stability. Pt attended the free public balance screening at [facility] two months ago, which showed there were enough concerns to request a referral for a balance evaluation. Pt reports that she has not had any falls, but has been very afraid of the possibility of falling for a year or so now. Uses a SPC out of the house, does not us an AD inside. Pt very hard of hearing Treatment Goals Patient/Caregiver Goals Decrease fear of falling and decrease feeling wobbly PT-OP-C Subjective Start: 05/15/24 13:34 Freq: Status: Active Protocol: Document 05/15/24 11:30 DCW (Rec: 05/15/24 13:43 DCW [id number]) OP-PT Subjective Patient Comments Patient Comments My balance is the problem. PT-OP-D Balance Start: 05/15/24 13:34 Freq: Status: Active Protocol: Document 05/15/24 11:30 DCW (Rec: 05/15/24 13:43 DCW [id number]) Balance Tests Sky Balance Test Sky Balance Test Score 43/56 Sky Impairment Rating 20 to 39% Impaired (Score 34- 44) Sky Balance Assessment Evaluation Sitting to Standing Ability Independent w/out Hands Unsupported Stance Safely- 2 minutes Sitting Unsupported, Feet on Floor Safely- 2 minutes Standing to Sitting Ability Safely, Minimal Hand Use Transfer Ability Safely, Minimal Hand Use Unsupported Stance- Eyes Closed Supervision, 10 seconds Unsupported Stance- Eyes Open Supervision to maintain Reaching Forward Standing Safely, 5 inches Pick- Up Object From Floor Supervision Look Behind Shoulder - Standing Shifts Weight Unilateral Turning 360 Degrees Turns slowly, but safely Unsupported Stance, Alternating Feet on 4 Steps w/Supervision Stair Unsupported Tandem Stance Holds Tandem- 30 seconds Unilateral Leg Stance Lifts Leg/Unable to Hold Total Score Sky Total Score (out of 56 points) 43 Sky Impairment Rating 20 to 39% Impaired (Score 34- 44) PT-OP-E Functional Tests Start: 05/15/24 13:34 Freq: Status: Active Protocol: Document 05/15/24 11:30 DCW (Rec: 05/15/24 13:43 DCW [id number]) Functional Tests Dynamic Gait Index (DGI) Score PT-OP-M Strength Start: 05/15/24 13:34 Freq: Status: Active Protocol: Document 05/15/24 11:30 DCW (Rec: 05/15/24 13:43 DCW [id number]) Hip Strength Hip Manual Muscle Testing Right Flexion (L2) 4- Good- Abduction 4- Good- Adduction 4+ Good+ External Rotation 4+ Good+ Internal Rotation 4+ Good+ Left Flexion (L2) 4 Good Abduction 4 Good Adduction 4+ Good+ External Rotation 4+ Good+ Internal Rotation 4+ Good+ Knee Strength Knee Manual Muscle Testing Right Flexion (S2) 4+ Good+ Extension (L3) 4+ Good+ Left Flexion (S2) 4+ Good+ Extension (L3) 4+ Good+ Ankle/Foot Strength Ankle and Foot Manual Muscle Testing Right Dorsiflexion (L4) 4+ Good+ Left Dorsiflexion (L4) 4+ Good+ PT-OP-T Assessment and Plan Start: 05/15/24 13:34 Freq: Status: Active Protocol: Document 05/15/24 11:30 DCW (Rec: 05/16/24 09:43 DCW [id number]) Physical Therapy Assessment Rehab Potential Rehabilitation Potential Good Evaluation Complexity Number of Personal Factors/Comorbidities 3 or More Number of Body Systems Impaired 4 or More Clinical Presentation at Evaluation Unstable Impairments Impairments Activity Tolerance,Balance, Functional Activities, Functional Mobility,Strength Goals Three Impairment Right hip weakness (4-/5) in flexion and abduction Detention Goal (LTG) Increased hip strength with an MMT of at least 4/5 in all tested planes in order to improve stability of the hips while walking. LTG Duration 07/16/24 Two Impairment Pt Sky score (43/56) indicates increased falls risk Detention Goal (LTG) Pt to demonstrate improvement in Sky score by at least four points to 47/56 in order to indicate a decreased risk of falls LTG Duration 07/16/24 One Impairment Pt does not have an appropriate home exercise program Short Term Goal (STG) Pt to be independent and compliant with an appropriate HEP STG Duration 06/15/24 Assessment Summary Assessment Pt presents with signs and symptoms consisitent with mild increase in falls risk. Pt dynamic balance doing well, with a DGI score of 20/24, however static balance indicates an increased falls risk, with pt scoring a 43/56. Additionally, pt has some R>L hip weakness, especially in right hip flexion and abduction. Pt will likely do well with skilled therapeutic intervention focusing on balance, LE strengthening, and implementation of an appropriate HEP. Pt is doing fairly well overall for her age, is significantly hard of hearing. Physical Therapy Plan Frequency and Duration Frequency of Treatment 1-2x/week Plan of Care Start Date 05/15/24 Plan of Care End Date 07/16/24 Therapeutic Interventions Therapeutic Interventions Balance Training,Home Exercise Program,Manual Therapy, Neuromuscular Re-education, Patient/Caregiver Education, Self-Care/Home Management, Therapeutic Activities, Therapeutic Exercises Next Visit Focus/Plan Next Note Type Treatment Note Next Visit Plan Balance training, hip strengthening
--- NOTE | 2024-06-04 11:32 | PT.OTN ---
Current Diagnoses Unsteadiness on feet (06/04/24) Unspecified abnormalities of gait and mobility (06/04/24) Physical Therapy Treatment Note PT-OP-A Visit Information Start: 05/15/24 13:34 Freq: Status: Active Protocol: Document 06/04/24 10:45 DCW (Rec: 06/04/24 11:31 DCW [id number]) Out-Patient Physical Therapy Visit Information Visit Information Visit Type Treatment Note Visit Start Time 10:45 Visit Stop Time 11:30 Visit Number 2 Number of BOTTOM PAINTER Visits 0 Evaluation Information Evaluation Date 05/15/24 PT-OP-B Current Condition Start: 05/15/24 13:34 Freq: Status: Active Protocol: Document 05/15/24 11:30 DCW (Rec: 05/15/24 13:43 DCW [id number]) Current Condition History of Current Condition Current Complaints Fear of Falling, feeling wobbly History of Current Condition Pt is an 88 year old female presenting with complaints of worsening balance. Pt has been using a SPC for the past 5-6 months to help with stability. Pt attended the free public balance screening at [facility] two months ago, which showed there were enough concerns to request a referral for a balance evaluation. Pt reports that she has not had any falls, but has been very afraid of the possibility of falling for a year or so now. Uses a SPC out of the house, does not us an AD inside. Pt very hard of hearing Treatment Goals Patient/Caregiver Goals Decrease fear of falling and decrease feeling wobbly PT-OP-C Subjective Start: 05/15/24 13:34 Freq: Status: Active Protocol: Document 06/04/24 10:45 DCW (Rec: 06/04/24 11:31 DCW [id number]) OP-PT Subjective Patient Comments Patient Comments Pt here today with daughter and son. Less than thrilled with the idea of therapy PT-OP-D Balance Start: 05/15/24 13:34 Freq: Status: Active Protocol: Document 05/15/24 11:30 DCW (Rec: 05/15/24 13:43 DCW [id number]) Balance Tests Sky Balance Test Sky Balance Test Score 43/56 Sky Impairment Rating 20 to 39% Impaired (Score 34- 44) Sky Balance Assessment Evaluation Sitting to Standing Ability Independent w/out Hands Unsupported Stance Safely- 2 minutes Sitting Unsupported, Feet on Floor Safely- 2 minutes Standing to Sitting Ability Safely, Minimal Hand Use Transfer Ability Safely, Minimal Hand Use Unsupported Stance- Eyes Closed Supervision, 10 seconds Unsupported Stance- Eyes Open Supervision to maintain Reaching Forward Standing Safely, 5 inches Pick- Up Object From Floor Supervision Look Behind Shoulder - Standing Shifts Weight Unilateral Turning 360 Degrees Turns slowly, but safely Unsupported Stance, Alternating Feet on 4 Steps w/Supervision Stair Unsupported Tandem Stance Holds Tandem- 30 seconds Unilateral Leg Stance Lifts Leg/Unable to Hold Total Score Sky Total Score (out of 56 points) 43 Sky Impairment Rating 20 to 39% Impaired (Score 34- 44) PT-OP-E Functional Tests Start: 05/15/24 13:34 Freq: Status: Active Protocol: Document 05/15/24 11:30 DCW (Rec: 05/15/24 13:43 DCW [id number]) Functional Tests Dynamic Gait Index (DGI) Score PT-OP-M Strength Start: 05/15/24 13:34 Freq: Status: Active Protocol: Document 05/15/24 11:30 DCW (Rec: 05/15/24 13:43 DCW [id number]) Hip Strength Hip Manual Muscle Testing Right Flexion (L2) 4- Good- Abduction 4- Good- Adduction 4+ Good+ External Rotation 4+ Good+ Internal Rotation 4+ Good+ Left Flexion (L2) 4 Good Abduction 4 Good Adduction 4+ Good+ External Rotation 4+ Good+ Internal Rotation 4+ Good+ Knee Strength Knee Manual Muscle Testing Right Flexion (S2) 4+ Good+ Extension (L3) 4+ Good+ Left Flexion (S2) 4+ Good+ Extension (L3) 4+ Good+ Ankle/Foot Strength Ankle and Foot Manual Muscle Testing Right Dorsiflexion (L4) 4+ Good+ Left Dorsiflexion (L4) 4+ Good+ PT-OP-Q Treatments Start: 05/15/24 13:34 Freq: Status: Active Protocol: Document 06/04/24 10:45 DCW (Rec: 06/04/24 11:31 DCW [id number]) Gym Equipment Shuttle Recovery Unilateral Squats Resistance 37# Bilateral Squats Resistance 50# Therapeutic Exercises Sitting Exercises LAQ Sitting Exercise Name LAQ Side bilateral Resistance 5# Marching Sitting Exercise Name Marching Side bilateral Resistance 5# Standing Exercises Hamstring curls Standing Exercise Name HS Curls Side bilateral Resistance 5# Toe Taps Standing Exercise Name Toe Taps Equipment Used 6 step Other Exercises Step-ups Other Exercise Name Step-ups Side bilateral Equipment Used 6 step Resisted Ambulation Other Exercise Name Resisted side-stepping Resistance Lv 2 Neuro Re-Education Treatment Balance Activities Tandem Details Tandem Stance SLS Details SLS Foam Details EO/EC, X1 Surface AirEx PT-OP-T Assessment and Plan Start: 05/15/24 13:34 Freq: Status: Active Protocol: Document 06/04/24 10:45 DCW (Rec: 06/04/24 11:31 DCW [id number]) Physical Therapy Assessment Impairments Impairments Activity Tolerance,Balance, Functional Activities, Functional Mobility,Strength Goals Three Impairment Right hip weakness (4-/5) in flexion and abduction Veterinary Surgeon Goal (LTG) Increased hip strength with an MMT of at least 4/5 in all tested planes in order to improve stability of the hips while walking. LTG Duration 07/16/24 Two Impairment Pt Sky score (43/56) indicates increased falls risk Fdc Goal (LTG) Pt to demonstrate improvement in Sky score by at least four points to 47/56 in order to indicate a decreased risk of falls LTG Duration 07/16/24 One Impairment Pt does not have an appropriate home exercise program Short Term Goal (STG) Pt to be independent and compliant with an appropriate HEP STG Duration 06/15/24 Assessment Summary Assessment Pt displaying very low motivation to participate in therapy, but was able to begrudgingly perform all activities with encouragement. Provided HEP HO to try some activities at home. Continue to focus on hip strength and balance challenges. Physical Therapy Plan Frequency and Duration Frequency of Treatment 1-2x/week Plan of Care Start Date 05/15/24 Plan of Care End Date 07/16/24 Therapeutic Interventions Therapeutic Interventions Balance Training,Home Exercise Program,Manual Therapy, Neuromuscular Re-education, Patient/Caregiver Education, Self-Care/Home Management, Therapeutic Activities, Therapeutic Exercises Next Visit Focus/Plan Next Note Type Treatment Note Next Visit Plan Balance training, hip strengthening
--- NOTE | 2024-06-13 14:32 | PT.OTN ---
Current Diagnoses Unsteadiness on feet (06/13/24) Unspecified abnormalities of gait and mobility (06/13/24) Physical Therapy Treatment Note PT-OP-A Visit Information Start: 05/15/24 13:34 Freq: Status: Active Protocol: Document 06/13/24 13:50 DCW (Rec: 06/13/24 14:31 DCW [id number]) Out-Patient Physical Therapy Visit Information Visit Information Visit Type Treatment Note Visit Start Time 13:50 Visit Stop Time 14:30 Visit Number 3 Number of HEAD CUSTODIAN Visits 0 Evaluation Information Evaluation Date 05/15/24 PT-OP-B Current Condition Start: 05/15/24 13:34 Freq: Status: Active Protocol: Document 05/15/24 11:30 DCW (Rec: 05/15/24 13:43 DCW [id number]) Current Condition History of Current Condition Current Complaints Fear of Falling, feeling wobbly History of Current Condition Pt is an 88 year old female presenting with complaints of worsening balance. Pt has been using a SPC for the past 5-6 months to help with stability. Pt attended the free public balance screening at [facility] two months ago, which showed there were enough concerns to request a referral for a balance evaluation. Pt reports that she has not had any falls, but has been very afraid of the possibility of falling for a year or so now. Uses a SPC out of the house, does not us an AD inside. Pt very hard of hearing Treatment Goals Patient/Caregiver Goals Decrease fear of falling and decrease feeling wobbly PT-OP-C Subjective Start: 05/15/24 13:34 Freq: Status: Active Protocol: Document 06/13/24 13:50 DCW (Rec: 06/13/24 14:31 DCW [id number]) OP-PT Subjective Patient Comments Patient Comments My balance is bad, so I don't think I should be doing this. PT-OP-D Balance Start: 05/15/24 13:34 Freq: Status: Active Protocol: Document 05/15/24 11:30 DCW (Rec: 05/15/24 13:43 DCW [id number]) Balance Tests Sky Balance Test Sky Balance Test Score 43/56 Sky Impairment Rating 20 to 39% Impaired (Score 34- 44) Sky Balance Assessment Evaluation Sitting to Standing Ability Independent w/out Hands Unsupported Stance Safely- 2 minutes Sitting Unsupported, Feet on Floor Safely- 2 minutes Standing to Sitting Ability Safely, Minimal Hand Use Transfer Ability Safely, Minimal Hand Use Unsupported Stance- Eyes Closed Supervision, 10 seconds Unsupported Stance- Eyes Open Supervision to maintain Reaching Forward Standing Safely, 5 inches Pick- Up Object From Floor Supervision Look Behind Shoulder - Standing Shifts Weight Unilateral Turning 360 Degrees Turns slowly, but safely Unsupported Stance, Alternating Feet on 4 Steps w/Supervision Stair Unsupported Tandem Stance Holds Tandem- 30 seconds Unilateral Leg Stance Lifts Leg/Unable to Hold Total Score Sky Total Score (out of 56 points) 43 Sky Impairment Rating 20 to 39% Impaired (Score 34- 44) PT-OP-E Functional Tests Start: 05/15/24 13:34 Freq: Status: Active Protocol: Document 05/15/24 11:30 DCW (Rec: 05/15/24 13:43 DCW [id number]) Functional Tests Dynamic Gait Index (DGI) Score PT-OP-M Strength Start: 05/15/24 13:34 Freq: Status: Active Protocol: Document 05/15/24 11:30 DCW (Rec: 05/15/24 13:43 DCW [id number]) Hip Strength Hip Manual Muscle Testing Right Flexion (L2) 4- Good- Abduction 4- Good- Adduction 4+ Good+ External Rotation 4+ Good+ Internal Rotation 4+ Good+ Left Flexion (L2) 4 Good Abduction 4 Good Adduction 4+ Good+ External Rotation 4+ Good+ Internal Rotation 4+ Good+ Knee Strength Knee Manual Muscle Testing Right Flexion (S2) 4+ Good+ Extension (L3) 4+ Good+ Left Flexion (S2) 4+ Good+ Extension (L3) 4+ Good+ Ankle/Foot Strength Ankle and Foot Manual Muscle Testing Right Dorsiflexion (L4) 4+ Good+ Left Dorsiflexion (L4) 4+ Good+ PT-OP-Q Treatments Start: 05/15/24 13:34 Freq: Status: Active Protocol: Document 06/13/24 13:50 DCW (Rec: 06/13/24 14:31 DCW [id number]) Therapeutic Exercises Sitting Exercises LAQ Sitting Exercise Name LAQ Side bilateral Resistance 4# Standing Exercises Hamstring curls Standing Exercise Name HS Curls Side bilateral Resistance 4# Toe Taps Standing Exercise Name Toe Taps Side bilateral Resistance 4# Equipment Used 6 step Comments x15 Other Exercises Step-ups Other Exercise Name Step-ups Side bilateral Equipment Used 6 step Resisted Ambulation Other Exercise Name Resisted side-stepping Resistance [place] Neuro Re-Education Treatment Balance Activities Hurdles Details Hurdles Equipment // bars Comments Forward, side-stepping Cone Tap Details LE cone tap Equipment // bars, 4 cones Tandem Details Tandem Stance SLS Details SLS Foam Details X1 Surface AirEx PT-OP-T Assessment and Plan Start: 05/15/24 13:34 Freq: Status: Active Protocol: Document 06/13/24 13:50 DCW (Rec: 06/13/24 14:31 DCW [id number]) Physical Therapy Assessment Impairments Impairments Activity Tolerance,Balance, Functional Activities, Functional Mobility,Strength Goals Three Impairment Right hip weakness (4-/5) in flexion and abduction Magazine Grinder Loader Goal (LTG) Increased hip strength with an MMT of at least 4/5 in all tested planes in order to improve stability of the hips while walking. LTG Duration 07/16/24 Two Impairment Pt Sky score (43/56) indicates increased falls risk Magazine Grinder Loader Goal (LTG) Pt to demonstrate improvement in Sky score by at least four points to 47/56 in order to indicate a decreased risk of falls LTG Duration 07/16/24 One Impairment Pt does not have an appropriate home exercise program Short Term Goal (STG) Pt to be independent and compliant with an appropriate HEP STG Duration 06/15/24 Assessment Summary Assessment Pt continues to be have very low motivation to participate in therapy, but is willing to perform activities for at least a short amount of time. First stated that she lost her HEP handout, but was then confused why she was given a second copy, stating that she already has one at home. Physical Therapy Plan Frequency and Duration Frequency of Treatment 1-2x/week Plan of Care Start Date 05/15/24 Plan of Care End Date 07/16/24 Therapeutic Interventions Therapeutic Interventions Balance Training,Home Exercise Program,Manual Therapy, Neuromuscular Re-education, Patient/Caregiver Education, Self-Care/Home Management, Therapeutic Activities, Therapeutic Exercises Next Visit Focus/Plan Next Note Type Treatment Note Next Visit Plan Balance training, hip strengthening
--- NOTE | 2024-06-27 16:02 | PT.OTN ---
Current Diagnoses Unsteadiness on feet (06/27/24) Unspecified abnormalities of gait and mobility (06/27/24) Physical Therapy Treatment Note PT-OP-A Visit Information Start: 05/15/24 13:34 Freq: Status: Active Protocol: Document 06/27/24 15:15 DCW (Rec: 06/27/24 16:02 DCW [id number]) Out-Patient Physical Therapy Visit Information Visit Information Visit Type Treatment Note Visit Start Time 15:15 Visit Stop Time 16:00 Visit Number 4 Number of PETROLEUM GEOLOGIST Visits 0 Evaluation Information Evaluation Date 05/15/24 PT-OP-B Current Condition Start: 05/15/24 13:34 Freq: Status: Active Protocol: Document 05/15/24 11:30 DCW (Rec: 05/15/24 13:43 DCW [id number]) Current Condition History of Current Condition Current Complaints Fear of Falling, feeling wobbly History of Current Condition Pt is an 88 year old female presenting with complaints of worsening balance. Pt has been using a SPC for the past 5-6 months to help with stability. Pt attended the free public balance screening at [facility] two months ago, which showed there were enough concerns to request a referral for a balance evaluation. Pt reports that she has not had any falls, but has been very afraid of the possibility of falling for a year or so now. Uses a SPC out of the house, does not us an AD inside. Pt very hard of hearing Treatment Goals Patient/Caregiver Goals Decrease fear of falling and decrease feeling wobbly PT-OP-C Subjective Start: 05/15/24 13:34 Freq: Status: Active Protocol: Document 06/27/24 15:15 DCW (Rec: 06/27/24 16:02 DCW [id number]) OP-PT Subjective Patient Comments Patient Comments I tdon't know that I need this. PT-OP-D Balance Start: 05/15/24 13:34 Freq: Status: Active Protocol: Document 05/15/24 11:30 DCW (Rec: 05/15/24 13:43 DCW [id number]) Balance Tests Sky Balance Test Sky Balance Test Score 43/56 Sky Impairment Rating 20 to 39% Impaired (Score 34- 44) Sky Balance Assessment Evaluation Sitting to Standing Ability Independent w/out Hands Unsupported Stance Safely- 2 minutes Sitting Unsupported, Feet on Floor Safely- 2 minutes Standing to Sitting Ability Safely, Minimal Hand Use Transfer Ability Safely, Minimal Hand Use Unsupported Stance- Eyes Closed Supervision, 10 seconds Unsupported Stance- Eyes Open Supervision to maintain Reaching Forward Standing Safely, 5 inches Pick- Up Object From Floor Supervision Look Behind Shoulder - Standing Shifts Weight Unilateral Turning 360 Degrees Turns slowly, but safely Unsupported Stance, Alternating Feet on 4 Steps w/Supervision Stair Unsupported Tandem Stance Holds Tandem- 30 seconds Unilateral Leg Stance Lifts Leg/Unable to Hold Total Score Sky Total Score (out of 56 points) 43 Sky Impairment Rating 20 to 39% Impaired (Score 34- 44) PT-OP-E Functional Tests Start: 05/15/24 13:34 Freq: Status: Active Protocol: Document 05/15/24 11:30 DCW (Rec: 05/15/24 13:43 DCW [id number]) Functional Tests Dynamic Gait Index (DGI) Score PT-OP-M Strength Start: 05/15/24 13:34 Freq: Status: Active Protocol: Document 05/15/24 11:30 DCW (Rec: 05/15/24 13:43 DCW [id number]) Hip Strength Hip Manual Muscle Testing Right Flexion (L2) 4- Good- Abduction 4- Good- Adduction 4+ Good+ External Rotation 4+ Good+ Internal Rotation 4+ Good+ Left Flexion (L2) 4 Good Abduction 4 Good Adduction 4+ Good+ External Rotation 4+ Good+ Internal Rotation 4+ Good+ Knee Strength Knee Manual Muscle Testing Right Flexion (S2) 4+ Good+ Extension (L3) 4+ Good+ Left Flexion (S2) 4+ Good+ Extension (L3) 4+ Good+ Ankle/Foot Strength Ankle and Foot Manual Muscle Testing Right Dorsiflexion (L4) 4+ Good+ Left Dorsiflexion (L4) 4+ Good+ PT-OP-Q Treatments Start: 05/15/24 13:34 Freq: Status: Active Protocol: Document 06/27/24 15:15 DCW (Rec: 06/27/24 16:02 DCW [id number]) Gym Equipment Shuttle Recovery Unilateral Squats Resistance 37# Bilateral Squats Resistance 75# Neuro Re-Education Treatment Balance Activities Ball/cone Transfer Details Ball/cone transfer Comments Cross-body pick-up Hurdles Details Hurdles/Foam Equipment // bars Comments Forward, side-stepping Cone Tap Details LE cone tap Equipment // bars, 4 cones Foam Details EO/EC, X1 Surface AirEx PT-OP-T Assessment and Plan Start: 05/15/24 13:34 Freq: Status: Active Protocol: Document 06/27/24 15:15 DCW (Rec: 06/27/24 16:02 DCW [id number]) Physical Therapy Assessment Impairments Impairments Activity Tolerance,Balance, Functional Activities, Functional Mobility,Strength Goals Three Impairment Right hip weakness (4-/5) in flexion and abduction Fpc Goal (LTG) Increased hip strength with an MMT of at least 4/5 in all tested planes in order to improve stability of the hips while walking. LTG Duration 07/16/24 Two Impairment Pt Sky score (43/56) indicates increased falls risk Captain Cannery Tender Goal (LTG) Pt to demonstrate improvement in Sky score by at least four points to 47/56 in order to indicate a decreased risk of falls LTG Duration 07/16/24 One Impairment Pt does not have an appropriate home exercise program Short Term Goal (STG) Pt to be independent and compliant with an appropriate HEP STG Duration 06/15/24 Assessment Summary Assessment Pt more participatory in today 's session, doing very well with all balance challenges. Will likely discharge to [facility] following next visit. Discussed with pt's daughter possibility of activities at [facility] to maintain increased activity. Physical Therapy Plan Frequency and Duration Frequency of Treatment 1-2x/week Plan of Care Start Date 05/15/24 Plan of Care End Date 07/16/24 Therapeutic Interventions Therapeutic Interventions Balance Training,Home Exercise Program,Manual Therapy, Neuromuscular Re-education, Patient/Caregiver Education, Self-Care/Home Management, Therapeutic Activities, Therapeutic Exercises Next Visit Focus/Plan Next Note Type Treatment Note Next Visit Plan Balance training, hip strengthening
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
== END 2024-07-03 13:52 | disposition home or self-care (01) ==
LOC: PHYS 11:30
PROVIDERS: Family Provider Internal Medicine; PCP Internal Medicine; Referring Provider Internal Medicine; Visit Provider Internal Medicine
DX: R26.9 Unspecified abnormalities of gait and mobility (principal); R26.81 Unsteadiness on feet
CPT/HCPCS: 97110; 97112; 97163; 97530

== ENCOUNTER → 2024-09-23 16:34 | Outpatient (CLI) | payer MEDICARE, SELFPAY ==
[2024-01-14 13:03] VITALS: BMI 18.5
--- NOTE | 2024-09-23 16:38 | DI.RAD.S_ITS ---
PROCEDURE: XR HIP W PEL IF DONE LT 2V INDICATIONS: left hip pain TECHNIQUE: AP pelvis with lateral view(s) of the left COMPARISON: [facility], CR, XR HIP W PEL IF DONE LT 2V, 01/30/2022, 11:58. FINDINGS: Bones: There are no osseous abnormalities. SI and hip joints: Right hip prostheses remains anatomically aligned without loosening or infection. Severe left hip degeneration has progressed from 2021 Soft tissues: Multiple small calcification in the lower abdomen appreciated. They are all less than 1 cm IMPRESSION: Severe left hip degeneration Dictated by: Don Chow M.D. on 09/24/2024 at 10:38 Approved by: Don Chow M.D. on 09/24/2024 at 10:39
== END ==
PROVIDERS: Family Provider Internal Medicine; PCP Internal Medicine; Referring Provider Internal Medicine; Visit Provider Internal Medicine
DX: M16.12 Unilateral primary osteoarthritis, left hip (principal); M25.552 Pain in left hip; Z96.641 Presence of right artificial hip joint
CPT/HCPCS: 73502